=== PATIENT | female | born 1980 | race Caucasian/White ===

== ENCOUNTER → 2020-06-12 14:53 | Outpatient (BNVA) | payer OTHER, SELFPAY | PROVIDERS: PCP Internal Medicine; Visit Provider Surgery | DX: K64.4 Residual hemorrhoidal skin tags (principal); K64.8 Other hemorrhoids | CPT/HCPCS: 46600 ==

== ENCOUNTER 2020-06-22 10:25 | Outpatient (REF) | payer OTHER, SELFPAY | END 2020-06-22 10:26 | disposition home or self-care (01) | LOC: HO.LAB 10:25 | PROVIDERS: Visit Provider Internal Medicine | DX: Z20.822 Contact with and (suspected) exposure to COVID-19 (principal) | CPT/HCPCS: 36415; C9803; U0003; U0005 ==

== ENCOUNTER 2020-12-27 17:03 | Outpatient (REF) | payer OTHER, SELFPAY | END 2020-12-27 17:04 | disposition home or self-care (01) | LOC: HO.LNP 17:03 | PROVIDERS: Visit Provider Physician Assistant Medical | DX: Z20.822 Contact with and (suspected) exposure to COVID-19 (principal) | CPT/HCPCS: U0003; U0005 ==

== ENCOUNTER 2021-04-26 11:37 | Outpatient (REF) | payer OTHER, SELFPAY ==
[2021-04-26 12:13] LABS: Binax Internal Control QC Valid; Binax Now Covid-19 Ag Positive (Negative)
[2021-04-26 14:13] LABS: Appearance Urine HAZY; Color Urine YELLOW; Glucose Urine UA NEG (NEG); Leukocyte Esterase Urine NEG (NEG); Nitrite Urine NEG (NEG); Specific Gravity - Urine <= 1.005 (1.005-1.025); Urine Blood NEG (NEG); Urine Ketones NEG (NEG); Urine Protein NEG (NEG-TRACE)
== END 2021-04-26 11:38 | disposition home or self-care (01) ==
LOC: HO.HMGCLDS 11:37
PROVIDERS: Visit Provider Physician Assistant Medical
DX: Z20.822 Contact with and (suspected) exposure to COVID-19 (principal); R33.9 Retention of urine, unspecified
CPT/HCPCS: 81003

== ENCOUNTER 2021-05-28 08:23 | Outpatient (REF) | payer OTHER, SELFPAY ==
[2021-05-28 11:13] LABS: MANUAL DIFF FLAG NO
[2021-05-28 11:19] LABS: Basophils Percent Auto 0.6 % (0-2); Eosinophils Absolute Auto 0.2 X10*3/uL (0.0-0.4); Eosinophils Percent Auto 3.1 % (0-4); Hematocrit 35.8 % (37.0-47.0); Hemoglobin 11.8 g/dl (12.0-16.0); Imm Gran Abs Auto 0.01 X10*3/uL (0.00-0.03); Imm Gran Pct Auto 0.2 % (0.0-0.4); Lymphocytes Absolute Auto 1.4 X10*3/uL (1.2-4.9); Lymphocytes Percent Auto 26.2 % (20-40); Mean Corpuscular Hemoglobin 31.1 pg (27.0-33.0); Mean Corpuscular Volume 94.5 fL (80.0-98.0); Mean Platelet Volume 9.4 fL (9.4-12.3); Monocytes Absolute Auto 0.3 X10*3/uL (0.1-1.2); Monocytes Percent Auto 5.8 % (2-11); Neutrophils Absolute Auto 3.3 x10*3/uL (2.0-8.3); Neutrophils Percent Auto 64.1 % (45-73); Platelet Count 236 X10*3/uL (160-400); Red Blood Count 3.79 X10*6/uL (4.20-5.50); White Blood Count 5.2 X10*3/uL (4.8-10.8)
[2021-05-28 11:21] LABS: Appearance Urine HAZY; Color Urine YELLOW; Glucose Urine UA NEG (NEG); Leukocyte Esterase Urine NEG (NEG); Nitrite Urine NEG (NEG); Specific Gravity - Urine 1.015 (1.005-1.025); Urine Blood NEG (NEG); Urine Ketones NEG (NEG); Urine Protein NEG (NEG-TRACE)
[2021-05-28 11:48] LABS: Alanine Aminotransferase 20 U/L (0-31); Alkaline Phosphatase 54 U/L (39-117); Anion Gap 12 (12-20); Aspartate Amino Transferase 21 U/L (5-31); Bilirubin Total 0.7 mg/dL (0.0-1.0); Blood Urea Nitrogen 14 mg/dL (9-16); Calcium 8.7 mg/dL (8.4-10.2); Carbon Dioxide 22 mmol/L (22-29); Chloride 105 mmol/L (96-108); Cholesterol 172 mg/dL; Estimated Glomerular Filt Rate > 60; Glucose Fasting 85 mg/dL (60-99); HDL Cholesterol 60 mg/dL; LDL Cholesterol Calculated 99 mg/dl; Potassium 4.2 mmol/L (3.3-5.1); Sodium 135 mmol/L (135-145); Total Protein 6.7 g/dL (6.5-8.0); Triglycerides 68 mg/dL
[2021-05-28 12:11] LABS: Squamous Epithelial Cell Urine 3+ /LPF
[2021-05-29 08:03] LABS: HBS Num1 1.47 mIU/mL (0-7.99); Hepatitis B Core Antibody Nonreactive (Nonreactive); ~HepC Num1 0.11 S/CO (0.00-0.79); ~Hepatitis B Surface Antibody NONREACTIVE (Nonreactive); ~Hepatitis C Antibody Nonreactive (Nonreactive)
[2021-05-29 08:12] LABS: HBsAGNum1 0.15 S/CO (0.00-0.99); Hepatitis B Surface Antigen Negative (Negative)
[2021-05-30 09:10] LABS: Hepatitis A Antibody IgM 0.17 Index (0-0.79); ~Hepatitis A Antibody IgM Nonreactive (Nonreactive)
== END 2021-05-28 08:24 | disposition home or self-care (01) ==
LOC: HO.HMGCLDS 08:23
PROVIDERS: Visit Provider Internal Medicine
DX: Z00.00 Encounter for general adult medical examination without abnormal findings (principal); J45.909 Unspecified asthma, uncomplicated; Z98.890 Other specified postprocedural states
CPT/HCPCS: 36415; 80053; 80061; 81001; 84443; 85025; 86704; 86706; 86709; 86803; 87340

== ENCOUNTER → 2021-07-02 16:00 | Outpatient (BNVA) | payer OTHER, SELFPAY | PROVIDERS: PCP Internal Medicine; Referring Provider Internal Medicine; Visit Provider Surgery | DX: K64.4 Residual hemorrhoidal skin tags (principal); K64.8 Other hemorrhoids; Z79.899 Other long term (current) drug therapy | CPT/HCPCS: 99212 ==

== ENCOUNTER 2021-07-12 08:04 | Outpatient (REF) | payer OTHER, SELFPAY ==
--- NOTE | ~2021-07-12 | US_ITS ---
EXAMINATION: US ABDOMEN COMPLETE CLINICAL INFORMATION: Right upper quadrant pain. COMPARISON: CT abdomen and pelvis 12/13/2016. TECHNIQUE: Real-time imaging of the abdominal viscera. Technically limited study secondary to bowel gas, full stomach and rib shadow. FINDINGS: PANCREAS: The head and the body of the pancreas are homogeneous echotexture. The tail is obscured by overlying gas. ABDOMINAL AORTA: The proximal, mid, and distal segments are normal in caliber. INFERIOR VENA CAVA: Visualized portions are normal. LIVER: The liver is normal in size. The liver contour is normal. Parenchymal echogenicity is normal. There is an avascular mass measuring 0.4 x 0.6 x 0.4 cm in the right hepatic lobe, likely a small hemangioma. Nothing was visualized on the previous CT abdomen exam 12/13/2016. There is no intrahepatic biliary duct dilatation seen. GALLBLADDER: Normal. The gallbladder is physiologically distended without evidence of stones, sludge, polyps, wall thickening or pericholecystic fluid. COMMON BILE DUCT: Normal in caliber measuring 0.2 cm in diameter. RIGHT KIDNEY: Normal. No hydronephrosis. No renal calculi or focal parenchymal lesions. The kidney measures 11.2 cm in maximum dimension. LEFT KIDNEY: Normal. No hydronephrosis. No renal calculi or focal parenchymal lesions. The kidney measures 10.2 cm in maximum dimension. SPLEEN: Normal. The spleen measures 9.1 cm in maximum dimension. FREE FLUID: None. US/US abdomen complete IMPRESSION: Echogenic avascular mass right hepatic lobe, likely a small hemangioma. It is new since previous CT abdomen and pelvis exam 2016. Tail of the pancreas are not well visualized. The rest of the abdominal ultrasound is unremarkable.
--- NOTE | ~2021-07-12 | MM_ITS ---
EXAMINATION: MM SCREENING DIGITAL BREAST TOMOSYNTHESIS, BILATERAL CLINICAL INFORMATION: Screening. Asymptomatic. Status post bilateral breast reduction surgery. The lifetime risk of breast cancer based on the Tyrer-Cuzick Model is 12.4%. COMPARISON: Mammography: 08/26/2020 and studies dating back to 10/17/2016. TECHNIQUE: Digital breast tomosynthesis was performed in both the craniocaudal and mediolateral oblique views along with computer-aided detection (CAD). Synthesized 2D images were generated from the tomosynthesis. FINDINGS: There are scattered areas of fibroglandular density (ACR BI-RADS breast composition Category b). There is a stable parenchymal pattern of the right breast without evidence of new abnormal dominant mass or suspicious grouping of microcalcifications. There are some stable postsurgical changes present. Postsurgical change is seen about the left breast. Adjacent to the anterior aspect of some dystrophic calcifications and in the same plane of imaging, there is a new 2 x 2 mm circumscribed density with a lucent center and some rim calcification consistent with a new calcifying oil cyst. MM/MM tomosynthesis screening BI IMPRESSION: There are no new significant changes from prior study. ASSESSMENT: BI-RADS 2: Benign RECOMMENDATION: Routine annual mammography screening. This patient's information was entered into a reminder system with a target due date for their next mammogram.
== END 2021-07-12 08:05 | disposition home or self-care (01) ==
LOC: HO.US 08:04
PROVIDERS: PCP Internal Medicine; Visit Provider Internal Medicine
DX: Z00.00 Encounter for general adult medical examination without abnormal findings (principal); Z12.31 Encounter for screening mammogram for malignant neoplasm of breast; R10.11 Right upper quadrant pain; J45.909 Unspecified asthma, uncomplicated; Z98.890 Other specified postprocedural states
CPT/HCPCS: 76700; 77063; 77067

== ENCOUNTER 2022-02-07 09:25 | Outpatient (REF) | payer OTHER, SELFPAY ==
--- NOTE | ~2022-02-07 | CT_ITS ---
EXAMINATION: CT ABDOMEN AND PELVIS WITH CONTRAST CLINICAL INFORMATION: Unspecified abdominal pain COMPARISON: 12/13/2016 TECHNIQUE: Multidetector volumetric images were obtained from the superior aspect of the liver through the pubic symphysis following administration 85 mL of Omnipaque 350 intravenous contrast. Sagittal and coronal reformatted images were obtained on the technologist's workstation. Oral contrast: Yes This CT examination was performed using dose optimization techniques as appropriate, variously including the following: *Automated exposure control *Adjustment of mA and/or kV according to patient size (this includes techniques or standardized protocols for targeted exams where dose is matched to indication/reason for exam; i.e. extremities or head) *Use of iterative reconstruction technique DLP: 533 mGy-cm FINDINGS: LUNG BASES: The visualized lung bases are unremarkable. LIVER, GALLBLADDER, AND BILIARY TREE: The liver is normal in size, shape, and attenuation. No biliary ductal dilatation. There are a few subcentimeter hypoattenuating lesions which are too small to characterize.. The gallbladder is unremarkable with no evidence of radiopaque gallstones, gallbladder wall thickening, or obvious pericholecystic inflammatory changes. PANCREAS: Unremarkable. SPLEEN: Unremarkable. ADRENAL GLANDS: Unremarkable. KIDNEYS AND URETERS: The kidneys are normal in size, shape, and attenuation. No hydronephrosis, hydroureter, or calculi seen. No perinephric stranding. BLADDER: Unremarkable. GASTROINTESTINAL TRACT: The stomach is unremarkable. Normal caliber small bowel. No obstruction. No colonic wall thickening or inflammatory change. No free air or free fluid. ABDOMINAL WALL: No significant hernia is appreciated. LYMPH NODES: Normal. VASCULAR: Unremarkable. PELVIC VISCERA: Uterus not seen. No adnexal mass. OSSEOUS STRUCTURES: Unremarkable. CT/CT abdomen pelvis w IV con IMPRESSION: No acute findings of the abdomen or pelvis. No inflammatory changes. Fleischner guidelines were followed.
[2022-02-07] MEDS: iohexoL 350 MG/ML 100 ML INFUS..BTL 85 ML IV (12:01)
== END 2022-02-07 09:26 | disposition home or self-care (01) ==
LOC: HO.CT 09:25
PROVIDERS: PCP Internal Medicine; Visit Provider Internal Medicine
DX: R10.9 Unspecified abdominal pain (principal)
CPT/HCPCS: 74177; Q9967

== ENCOUNTER 2022-03-16 14:08 | Outpatient (REF) | payer OTHER, SELFPAY ==
[2022-03-16 15:13] LABS: Influenza A PCR NEGATIVE (Negative); Influenza B PCR NEGATIVE (Negative); Resp Syncy Virus RNA Qual PCR NEGATIVE (Negative); SARS COV2 PCR INHOUSE NEGATIVE (Negative)
== END 2022-03-16 14:09 | disposition home or self-care (01) ==
LOC: HO.LNP 14:08
PROVIDERS: Visit Provider Nurse Practitioner Family
DX: R68.89 Other general symptoms and signs (principal); Z20.822 Contact with and (suspected) exposure to COVID-19
CPT/HCPCS: 0241U; C9803

== ENCOUNTER 2022-07-27 07:31 | Outpatient (REF) | payer OTHER, SELFPAY ==
--- NOTE | ~2022-07-27 | MM_ITS ---
EXAMINATION: MM SCREENING DIGITAL BREAST TOMOSYNTHESIS, BILATERAL CLINICAL INFORMATION: Screening. Asymptomatic. Prior bilateral reduction mammoplasty. The lifetime risk of breast cancer based on the Tyrer-Cuzick Model is 8%. COMPARISON: Mammography: 07/12/2021; outside mammography 08/26/2020, 12/19/2018 ([facility]) TECHNIQUE: Digital breast tomosynthesis is performed in both the craniocaudal and mediolateral oblique views along with computer-aided detection (CAD). Synthesized 2D images are generated from the tomosynthesis. FINDINGS: There are scattered areas of fibroglandular density (ACR BI-RADS breast composition Category b). There is minor bilateral scarring and benign coarse and rim calcifications central anterior left breast similar to prior studies and consistent with the reduction mammoplasty. There are no significant masses, abnormal calcifications, or other abnormalities. No developing density. No interval architectural abnormality. The axilla are unremarkable. MM/MM tomosynthesis screening BI IMPRESSION: No mammographic evidence of malignancy. ASSESSMENT: BI-RADS 2: Benign RECOMMENDATION: Routine annual mammography screening. This patient's information was entered into a reminder system with a target due date for their next mammogram.
== END 2022-07-27 07:32 | disposition home or self-care (01) ==
LOC: HO.MAMMO 07:31
PROVIDERS: PCP Internal Medicine; Visit Provider Internal Medicine
DX: Z12.31 Encounter for screening mammogram for malignant neoplasm of breast (principal)
CPT/HCPCS: 77063; 77067

== ENCOUNTER 2023-01-15 12:59 | Outpatient (REF) | payer OTHER, SELFPAY ==
--- NOTE | ~2023-01-15 | US_ITS ---
EXAMINATION: US PELVIS CLINICAL INFORMATION: Pelvic and perineal pain. COMPARISON: Pelvic ultrasound dated January 28, 2006. CT scan dated February 07, 2022. TECHNIQUE: Ultrasound of the pelvis is performed using both transabdominal and transvaginal transducers along with Doppler. Transvaginal imaging is performed due to inadequate visualization transabdominally. FINDINGS: Uterus: The uterus is not visualized. Adnexa: The left ovary could not be visualized by the technologist. There is normal color flow to the right adnexa. There is no evidence of ovarian torsion. No pelvic ascites or fluid collection is appreciated. Right ovary measures 2.7 x 1.6 x 2.1 cm. Estimated volume measures 5 cc. US/US pelvic and transvaginal IMPRESSION: Uterus not visualized, suggesting prior surgical removal. Left ovary could not be visualized by the technologist. Otherwise unremarkable study.
== END 2023-01-15 13:00 | disposition home or self-care (01) ==
LOC: HO.HMGCX 12:59
PROVIDERS: PCP Internal Medicine; Visit Provider Obstetrics & Gynecology
DX: R10.2 Pelvic and perineal pain (principal)
CPT/HCPCS: 76830; 76856

== ENCOUNTER 2023-01-21 11:30 | Outpatient (AMB) | payer OTHER, SELFPAY ==
--- NOTE | 2023-01-21 11:32 | A.OFFPC_ITS ---
Vital Signs 01/21/23 11:33 Height 5 ft Weight 169 lb BMI 33.0 BP 132/88 Blood Pressure Location Lt brachial Position Sitting Pulse 79 Pulse Source Pulse Oximeter Pulse Oximetry (%) 100 Oxygen Delivery Method Room Air Intake Visit Reasons: Migraine headaches and leg pain Intake Note: Pt is here today for a sick visit. Pt c/o cluster headaches. Pt states that its on the R side of her head and she is feeling numbness. Pt would like to get a referral to Neurologist. Allergies oxycodone [From PERCOCET] Allergy (Unknown, Verified 01/21/23 11:35) ITCHING Medication List - Last Reconciled 01/21/23 by Ginna Mclain MD fluticasone propion-salmeterol 230-21 mcg/actuation (Advair HFA) 2 puffs inhalation BID fluticasone propionate 50 mcg/actuation (Flonase Allergy Relief) 2 sprays intranasal DAILY Tobacco use date assessed: 01/21/23 Dental Screening Dental Screen Date: 01/21/23 Did you have a dental visit in the last 12 months?: Yes Did you have a dental problem in the last 6 months where you did not have access to dental care?: No Was dental information given to patient?: Patient has dentist HPI Migraine headaches and leg pain HPI Details Pt presents c/o chronic migraine BURNS with R facial numbness, nausea, light sensitivity getting more frequent up to 2 x a week. Patient has been taking Tylenol or Advil with some relief. Pt would like to see neurologist at [facility]. Pt used to see neurosurgeon at [facility] for benign brain tumor and had serial MRIs. Patient was told that she did not need a repeat MRI for follow-up. 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 How often do you have a drink containing alcohol?: Never 3. How often do you have six or more drinks on one occasion?: Never Total Score: 0 COLE-7 AMB Questionnaire COLE-7 Date COLE - 7 assessed: 05/24/21 Feeling nervous, anxious, or on edge: 2 = More than half the days Not being able to stop or control worryin = Several days Worrying too much about different things: 2 = More than half the days Trouble relaxin = More than half the days Being so restless that it is hard to sit still: 1 = Several days Becoming easily annoyed or irritable: 1 = Several days Feeling afraid as if something awful might happen: 1 = Several days Total COLE-7 score (0-4 normal; 5-9 mild; 10-14 moderate; 15-21 severe): 10 Source: Developed by Drs. Carlos Enrique Eng, Debora Cabezas, Alejandro Chilel and colleagues, with an educational abram from [employer]. Review of Systems Const All systems reviewed & are unremarkable except as noted in HPI and below Reports no additional complaints Eyes Reports no additional complaints ENT Reports no additional complaints Card Reports no additional complaints Resp Reports no additional complaints GI Reports no additional complaints Reports no additional complaints Musc Reports no additional complaints Neuro Reports no additional complaints Physical exam (Primary Care) Vital Signs: Last Vital Signs Pulse 79 01/21/23 11:33 BP 132/88 01/21/23 11:33 Pulse Ox 100 01/21/23 11:33 Oxygen Delivery Method Room Air 01/21/23 11:33 BMI result Body Mass Index 33.0 Tobacco/Smoking Status: Tobacco use Status Tobacco use date assessed 01/21/23 01/21/23 11:37 Patient Tobacco Use Status Never used Tobacco 01/21/23 11:37 e-Cigarette/Vaping Use Never Used 01/21/23 11:37 Thrive Assessment: Date of Thrive Assessment Date Thrive assessed 05/24/21 01/21/23 11:37 Const General: no acute distress HENMT Head: Yes normal to inspection Face and sinus: Yes normal facial exam Mouth: Normal oral and palatal mucosa present Throat: Yes posterior oropharynx normal Neck Neck: Yes no lymphadenopathy and Yes supple Resp Effort & Inspection: normal respiratory effort Auscultation: clear to auscultation bilaterally Cardio Rhythm: regular rhythm Heart sounds: S1 normal heart sound present and S2 normal heart sound present Neuro General: CN's II-XI intact bilaterally Gait exam (Neuro): Normal gait present Motor exam (neuro): 5/5 motor strength present throughout Romberg Test: Negative Assessment and Plan Assessment & Plan (1) Chronic headaches: Code(s): R51.9 - Headache, unspecified; G89.29 - Other chronic pain Plan: Patient will try Imitrex and is referred to [facility] Neurology (2) Annual physical exam: Code(s): Z00.00 - Encounter for general adult medical examination without abnormal findings Plan: She will return for fasting blood work (3) Asthma: Comment: pulmonology at [facility] Code(s): J45.909 - Unspecified asthma, uncomplicated Plan: Continue Advair Orders: Orders Complete Blood Count Auto Diff Today Z00.00 - Encounter for general adult medical examination without abnormal findings Lipid Panel Today Z00.00 - Encounter for general adult medical examination without abnormal findings Comprehensive Sugar Tree. Panel Fast Today Z00.00 - Encounter for general adult medical examination without abnormal findings TSH reflex Free T4 Today Z00.00 - Encounter for general adult medical examination without abnormal findings Referrals Neurology Referral G89.29 - Other chronic pain, R51.9 - Headache, unspecified Medications: New sumatriptan succinate (Imitrex) take 1 tab at onset of headache; if no relief, may repeat 1 tab after at least 2 hrs; max = 2 tabs/24 hrs PO 10 tabs 0RF Coding Level of Care Code Est Pt Level 3 (98877) Diagnoses Chronic headaches R51.9; G89.29 Annual physical exam Z00.00 Asthma J45.909
[2023-01-21 11:33] VITALS: BP 132/88; PULSE 79; O2SAT 100; BMI 33.0
== END 2023-01-21 12:37 | disposition home or self-care (01) ==
PROVIDERS: PCP Internal Medicine; Visit Provider Internal Medicine
DX: R51.9 Headache, unspecified (principal); G89.29 Other chronic pain; Z00.00 Encounter for general adult medical examination without abnormal findings; J45.909 Unspecified asthma, uncomplicated
CPT/HCPCS: 99213

== ENCOUNTER 2023-01-25 08:33 | Outpatient (REF) | payer OTHER, SELFPAY ==
[2023-01-25 11:03] LABS: MANUAL DIFF FLAG NO
[2023-01-25 11:12] LABS: Basophils Percent Auto 0.7 % (0-2); Eosinophils Absolute Auto 0.2 X10*3/uL (0.0-0.4); Eosinophils Percent Auto 3.3 % (0-4); Hematocrit 35.4 % (37.0-47.0); Hemoglobin 11.7 g/dl (12.0-16.0); Imm Gran Abs Auto 0.01 X10*3/uL (0.00-0.03); Imm Gran Pct Auto 0.2 % (0.0-0.4); Lymphocytes Absolute Auto 1.3 X10*3/uL (1.2-4.9); Lymphocytes Percent Auto 28.8 % (20-40); Mean Corpuscular HGB Conc 33.1 g/dl (31.0-35.0); Mean Corpuscular Hemoglobin 30.5 pg (27.0-33.0); Mean Corpuscular Volume 92.4 fL (80.0-98.0); Mean Platelet Volume 9.4 fL (9.4-12.3); Monocytes Absolute Auto 0.3 X10*3/uL (0.1-1.2); Monocytes Percent Auto 6.3 % (2-11); Neutrophils Absolute Auto 2.8 x10*3/uL (2.0-8.3); Neutrophils Percent Auto 60.7 % (45-73); Platelet Count 220 X10*3/uL (160-400); Red Blood Count 3.83 X10*6/uL (4.20-5.50); Red Cell Distribution Width 13.2 % (11.0-16.0); White Blood Count 4.6 X10*3/uL (4.8-10.8)
[2023-01-25 11:29] LABS: Alanine Aminotransferase 17 U/L (0-31); Alkaline Phosphatase 52 U/L (39-117); Anion Gap 13 (12-20); Aspartate Amino Transferase 17 U/L (5-31); Bilirubin Total 0.3 mg/dL (0.0-1.0); Blood Urea Nitrogen 9 mg/dL (9-16); C Reactive Protein 0.17 mg/dL (< or = 0.50); Calcium 9.3 mg/dL (8.4-10.2); Carbon Dioxide 22 mmol/L (22-29); Chloride 108 mmol/L (96-108); Cholesterol 164 mg/dL (<200); Estimated Glomerular Filt Rate > 60; Glucose Fasting 83 mg/dL (60-99); Glucose Random 83 mg/dL (60-115); HDL Cholesterol 60 mg/dL (>40); LDL Cholesterol Calculated 95 mg/dL (<100); Potassium 4.1 mmol/L (3.3-5.1); Sodium 139 mmol/L (135-145); Total Protein 6.6 g/dL (6.5-8.0); Triglycerides 49 mg/dL (<150)
[2023-01-25 11:49] LABS: TSH reflex Free T4 1.07 uIU/mL (0.32-4.0)
[2023-01-25 12:00] LABS: Appearance Urine Clear; Color Urine Yellow; Glucose Urine UA Negative (Negative); Leukocyte Esterase Urine Negative (Negative); Nitrite Urine Negative (Negative); PH 7.5 (5.0-9.0); Specific Gravity - Urine 1.015 (1.005-1.025); Urine Blood Negative (Negative); Urine Ketones Negative (Negative); Urine Protein Negative (Neg-Trace)
[2023-01-25 12:03] LABS: Bacteria Urine None Seen (None Seen); Hyaline Casts Urine 0-2 /LPF (0-2); RBC Urine 0-2 /HPF (0-2); Squamous Epithelial Cell Urine 0-2 /HPF (0-2); WBC Urine 0-5 /HPF (0-5)
== END 2023-01-25 08:34 | disposition home or self-care (01) ==
LOC: HO.HMGCLDS 08:33
PROVIDERS: PCP Internal Medicine; Visit Provider Internal Medicine
DX: Z00.00 Encounter for general adult medical examination without abnormal findings (principal); R10.9 Unspecified abdominal pain
CPT/HCPCS: 36415; 80053; 80061; 81001; 84443; 85025; 86140

== ENCOUNTER 2023-02-26 08:38 | Outpatient (AMB) | payer OTHER, SELFPAY ==
--- NOTE | 2023-02-26 08:55 | MHC.OFFVIS ---
Intake Vital Signs 02/26/23 08:57 Height 5 ft Weight 170 lb BMI 33.2 BP 120/78 Intake Visit Reasons: Annual/U/S Follow up/DO NOT RS Manager Engagement Required: No Information Interpreted: non-clinical & clinical Data Integration Developer: Data Integration Developer Present ([place]) Allergies oxycodone [From PERCOCET] Allergy (Unknown, Verified 02/26/23 08:59) ITCHING Is last menstrual period known: No Patient : No HPI HPI Comments History of Present Illness Details Presenting for annual exam. And follow-up for pelvic pain. Last visit urine dip was negative pelvic ultrasound done recently. Since then, her pelvic pain has resolved completely. Last Pap/HPV was many years ago no history of abnormal Pap smear, the patient is status post hysterectomy for fibroids in 2017 Last Mammogram was BI-RADS 2 in 07/28 Ultrasound done on in 01/27 showed the following: Uterus: The uterus is not visualized. Adnexa: The left ovary could not be visualized by the technologist. There is normal color flow to the right adnexa. There is no evidence of ovarian torsion. No pelvic ascites or fluid collection is appreciated. Right ovary measures 2.7 x 1.6 x 2.1 cm. Estimated volume measures 5 cc. 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: House Patient Tobacco Use Status: Never used Tobacco e-Cigarette/Vaping Use: Never Used Patient : No Current occupational status: employed 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 Sexual orientation: Straight/Heterosexual Gender identity: Female Cognitive needs: No Hearing needs: No Vision needs: No Female Reproductive History Menstrual Age of Menarche: 8 control method: permanent sterilization Total pregnancies: 2 Full term: 2 Number of Living Children: 2 Date of Mammogram: 07/27/22 Review of Systems Const All systems reviewed & are unremarkable except as noted in HPI and below Card Reports as per HPI and Reports no additional complaints Resp Reports as per HPI and Reports no additional complaints GI Reports as per HPI and Reports no additional complaints Reports as per HPI Physical Exam Vital Signs: Last Vital Signs BP 120/78 02/26/23 08:57 BMI result Body Mass Index 33.2 Const General: cooperative, healthy appearing and comfortable General: Yes bladder normal to palpation External Female Exam: No lesion Speculum Exam - Vagina: normal appearance of the vagina, normal vaginal discharge and not erythematous Speculum Exam - Cervix: Cervix absent Bimanual exam- vagina & uterus: bladder normal to palpation and uterus absent Bimanual Exam- Adnexa, other: Other (No masses detected) Assessment & Plan Assessment & Plan (1) Well woman exam: Code(s): Z01.419 - Encounter for gynecological examination (general) (routine) without abnormal findings Plan: Cotesting not indicated since the patient is status post hysterectomy with no history of abnormal Pap smear in the past. Instructions given the patient to schedule her next screening Mammogram in 07/29. Counseled the patient about the recommended dietary allowance of 1000 mg of Calcium & 600 IU of vitamin D. The patient was instructed to perform monthly self-breast exams and to schedule an annual exam in a year; All questions answered and the patient verbalized understanding. Instructed the patient to schedule annual exam in a year (2) Pelvic pain: Code(s): R10.2 - Pelvic and perineal pain Plan: Discussed with patient the results of the urine dip being negative and pelvic ultrasound, unremarkable. 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 Instructions given the patient case pelvic pain recurs to schedule an appointment with her PCP for further evaluation and if the workup is negative and her pain is persistent to call back for further management. All questions answered, the patient verbalized understanding and agreed with the plan. Coding Level of Care Code Est Pt Prev Care 40-64y(77750) Diagnoses Well woman exam Z01.419 Pelvic pain R10.2
[2023-02-26 08:57] VITALS: BP 120/78; BMI 33.2
== END 2023-02-26 09:23 | disposition home or self-care (01) ==
LOC: HO.HWS 08:39
PROVIDERS: PCP Internal Medicine; Visit Provider Obstetrics & Gynecology
DX: Z01.419 Encounter for gynecological examination (general) (routine) without abnormal findings (principal); R10.2 Pelvic and perineal pain
CPT/HCPCS: 99396

== ENCOUNTER → 2023-02-26 08:38 | Outpatient (BNVA) | payer OTHER, SELFPAY | PROVIDERS: PCP Internal Medicine; Visit Provider Obstetrics & Gynecology ==

== ENCOUNTER 2023-03-12 09:24 | Outpatient (AMB) | payer OTHER, SELFPAY ==
[2023-03-12 10:38] VITALS: BP 118/74; PULSE 75; TEMP 36.8; O2SAT 97; BMI 33.0
--- NOTE | 2023-03-12 10:38 | AM.OFFWIN_ITS ---
Intake Vital Signs 03/12/23 10:38 Height 5 ft Weight 76.714 kg BMI 33.0 BP 118/74 Blood Pressure Location Rt brachial Position Sitting Pulse 75 Pulse Source Pulse Oximeter Temp 98.2 F Temp Source Oral Pulse Oximetry (%) 97 Oxygen Delivery Method Room Air Intake Visit Reasons: EP short breath congestion headache [id number] Intake Note: pt is here for c.o upper resp infection possibly, congestion, headache, patient went to urgent care and completed course of amoxicillin 125 mg but no relief Patient Tobacco Use Status: Never used Tobacco Allergies oxycodone [From PERCOCET] Allergy (Unknown, Verified 03/12/23 10:40) ITCHING Do you need a note to return to daycare/school/sports/work: Yes HPI HPI Comments History of Present Illness Details 1058 43-year-old female presents for evaluati on of upper respiratory infection complaining of fatigue, malaise, myalgias, cough, patient went to urgent care about a week ago, was prescribed amoxicillin, she took a full course of antibiotics however despite this not feeling better. She reports symptoms have not worsened however they have remained same. She denies associated fevers, chills, chest pain, shortness of breath, nausea, vomiting, abdominal pain, changes in bowel habits, sinus pressure, headache, vision changes, dizziness and weakness. Physical exam benign. Concerns for upper respiratory infection versus bronchitis versus pneumonia. Unlikely acute coronary syndrome, pulmonary embolism , acute respiratory distress, dissection, pneumothorax. Other differentials include viral illness such as flu / COVID/RSV. plan at this time will discharge patient home on doxycycline and prednisone with an inhaler. Educated patient on diagnosis and treatment plan, answered all question, patient verbalizes understanding. At this time patient will be discharged home, advised to return with new or worsening symptoms. Educated on worrisome signs and symptoms and when to return. At this time I feel comfortable discharge home. 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 Housing: House Patient Tobacco Use Status: Never used Tobacco e-Cigarette/Vaping Use: Never Used Current occupational status: employed 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 Sexual 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: Straight/Heterosexual Gender identity: Female Cognitive needs: No Hearing needs: No Vision needs: No Female Reproductive History Menstrual Age of Menarche: 8 Review of Systems Const Details: Constitutional : No Weight loss, No Fever, No Chills, + Fatigue, + Malaise ENT/Mouth : No sore throat, No Rhinorrhea, + congestion Eyes: No Eye Pain, No Swelling, No Redness Cardiovascular : No Chest Pain, No SOB, No Dyspnea on Exertion, No Orthopnea, No Edema, No Palpitations Respiratory : + Cough, No Sputum, No Wheezing Gastrointestinal : No Nausea, No Vomiting, No Diarrhea, No Constipation, No abdominal Pain, No Hematochezia, No Melena Genitourinary : No Dysuria, No Urinary Frequency, No Hematuria, Musculoskeletal : No joint pain, No Myalgias, No Joint Swelling Skin : No Skin Lesions, No rash Neuro : No Weakness, No Numbness, No Dizziness, No Headache All other systems reviewed and are negative All systems reviewed & are unremarkable except as noted in HPI and below Physical Exam Vital Signs: Last Vital Signs Temp 98.2 F 03/12/23 10:38 Pulse 75 03/12/23 10:38 BP 118/74 03/12/23 10:38 Pulse Ox 97 03/12/23 10:38 Oxygen Delivery Method Room Air 03/12/23 10:38 BMI result Body Mass Index 33.0 Vital signs stable Appearance: Alert.? Oriented X3.? No acute distress.? Head: Normocephalic, atraumatic, no step-offs or deformities Eyes: Pupils equal, round and reactive to light.? ENT: Pharynx normal.? Neck: Normal inspection.? Neck supple.? CVS: Normal heart rate and rhythm.? Pulses normal.? Respiratory: No respiratory distress.? Breath sounds normal.? Abdomen: Soft and nontender.? Skin: Skin warm and dry.? Normal skin color.? Normal skin turgor.? Extremities: No lower extremity edema.? No calf ttp. 5/5 strength to bilateral upper and lower extremities Back: No midline tenderness, no C-spine tenderness, full range of motion, no CVA tenderness bilaterally Neuro: Oriented X 3.? No motor deficit.? No sensory deficit. CN 2-12 intact Assessment & Plan Assessment & Plan (1) Bronchitis: Code(s): J40 - Bronchitis, not specified as acute or chronic Plan Take your medications as prescribed. If you were prescribed antibiotics today, it is important that you take your medication to their entirety, do not skip any doses, do not finish them early. Follow-up with your primary care provider this week. Return to the emergency department with new or worsening symptoms. Such as fevers, chills, chest pain, shortness of breath, nausea, vomiting, dizziness, headache, vision changes, lethargy In case of emergency call 911 Medications: New prednisone 20 mg PO DAILY 5 days 5 tabs 0RF doxycycline hyclate 100 mg PO BID 7 days 14 caps 0RF albuterol sulfate 90 mcg/actuation 2 puffs inhalation Q6H PRN 6.7 grams 0RF shortness of breath or wheezing Coding Level of Care Code Est Pt Level 3 (23204) Diagnoses Bronchitis J40
== END 2023-03-12 11:07 | disposition home or self-care (01) ==
PROVIDERS: PCP Internal Medicine; Visit Provider Physician Assistant
DX: J40 Bronchitis, not specified as acute or chronic (principal)
CPT/HCPCS: 99213

== ENCOUNTER 2023-05-08 13:28 | Outpatient (AMB) | payer OTHER, SELFPAY ==
[2023-05-08 13:32] VITALS: BP 119/74; PULSE 94; BMI 33.1
--- NOTE | 2023-05-08 13:32 | A.OFFVIS_ITS ---
Intake Vital Signs 05/08/23 13:32 Height 5 ft Weight 169 lb 12.095 oz BMI 33.1 BP 119/74 Blood Pressure Location Rt brachial Position Sitting Pulse 94 Intake Visit Reasons: hemorrhage of anus Intake Note: Patient presents to in office visit today as a new patient for rectal bleeding. CC: Patient c/o rectal bleeding on and off for about 2 years, hemorrhoids, RUQ abd pain for about a year, and constipation. She also c/o a lot of discomfort, she said the blood is a lot and it goes through her pants. She states that she already knows when she will start bleeding because she gets a lot pain and abd bloating. Per patient when she eats red meat, sauces, fried foods, and some spices she gets heartburn and feels sick. Allergies oxycodone [From PERCOCET] Allergy (Unknown, Verified 05/08/23 13:38) ITCHING HPI hemorrhage of anus HPI Details 43-year-old female with past medical his tory of internal and external hemorrhoids, chronic headaches asthma is here for initial consultation. Patient reports that she had a colonoscopy in 2019. Has seen general surgery for her hemorrhoids and has not schedule hemorrhoidectomy. Patient canceled her hemorrhoide[place] [address] Nunn. Reports that she had hemorrhoidectomy in 2019 at [facility]. Patient's colonoscopy was normal except for hemorrhoids seen. Patient reports feeling constipated, occasionally patient will have a postprandial loose stools, however most often she is constipated. Currently is not taking anything for constipation. Patient reports that she is drinking plenty fluids. Depending on what she eats her bleeding is worse. Specially when she eats take something fried or spicy. Patient reports that she usually no so when she is going to have bleeding that is when she has cramping to go to the bathroom, feeling bloated, crampy. Patient reports to be bleeding a lot. Patient reports dyspepsia without dysphagia or odynophagia. 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 Housing: House Patient Tobacco Use Status: Never used Tobacco e-Cigarette/Vaping Use: Never Used Current occupational status: employed 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 Sexual orientation: Straight/Heterosexual Gender identity: Female Cognitive needs: No Hearing needs: No Vision needs: No Female Reproductive History Menstrual Age of Menarche: 8 Review of Systems Const Denies weight gain and Denies weight loss ENT Reports no additional complaints, Denies dysphagia and Denies odynophagia Card Reports no additional complaints Resp Reports no additional complaints GI Reports abdominal pain (Cramping), Denies belching, Denies melena, Reports bloating, Reports hematochezia, Denies change in bowel habits, Reports constipation, Denies dysphagia, Denies excessive flatus, Reports dyspepsia, Reports heartburn, Denies diarrhea, Denies loose stools, Reports nausea, Denies odynophagia and Denies vomiting Reports no additional complaints Musc Reports no additional complaints Neuro Reports no additional complaints Psych Reports no additional complaints Endo Reports no additional complaints Physical Exam Vital Signs: Last Vital Signs Pulse 94 05/08/23 13:32 BP 119/74 05/08/23 13:32 BMI result Body Mass Index 33.1 Const General: healthy appearing, no acute distress and well developed Nutritional Appearance: well nourished Orientation/consciousness: patient oriented x3 Resp Effort & Inspection: normal respiratory effort, able to speak in complete sentences, no tracheal deviation and symmetric chest movement Auscultation: clear to auscultation bilaterally Cardio Rate: regular rate GI Inspection: Yes normal to inspection and No distended Palpation (GI): Soft to palpation, not firm, nontender and No hepatosplenomegaly present Auscultation: normal bowel sounds General: Yes no CVA tenderness Back/Spine/Pelvis Back: no CVA tenderness Skin General skin exam: elasticity normal, turgor normal and dry skin Neuro General: patient oriented x3 Psych Appearance: grossly normal Mental Status: mental status grossly normal Assessment & Plan Assessment & Plan (1) RUQ abdominal pain: Code(s): R10.11 - Right upper quadrant pain (2) Rectal bleeding: Code(s): K62.5 - Hemorrhage of anus and rectum (3) Internal and external bleeding hemorrhoids: Code(s): K64.4 - Residual hemorrhoidal skin tags; K64.8 - Other hemorrhoids (4) GERD (gastroesophageal reflux disease): Code(s): K21.9 - Gastro-esophageal reflux disease without esophagitis Qualifiers: Esophagitis presence: esophagitis presence not specified Qualified Code(s): K21.9 - Gastro-esophageal reflux disease without esophagitis Plan Will send patient for abdominal ultrasound. Patient reports right upper quadrant pain, negative for tenderness on exam. Will check for H pylori and treat empirically if positive. Patient can start taking pantoprazole every morning half an hour before breakfast. Avoid dietary triggers and late night snacking. Patient will also call General surgery to see if she can go had an have the surgery. Patient is of age to go for colonoscopy, however would like to wait until after her surgery. Will rule out IBD, check lipase, vitamin B12, folate, vitamin D, thyroid study. Patient will return in 6 weeks, sooner on as needed basis. Patient is agreeable to this plan and verbalizes understanding of instructions. She was given the opportunity to ask questions and all questions answered. Thank you for allowing me to participate in her care Orders: Orders Vitamin D 25-OH (D2 and D3) 05/08/23 E55.9 - Vitamin D deficiency, unspecified H pylori Ag Stool 05/08/23 K21.9 - Gastro-esophageal reflux disease without esophagitis Calprotectin, Fecal 05/08/23 R15.9 - Full incontinence of feces Lipase 05/08/23 R10.9 - Unspecified abdominal pain TSH reflex Free T4 05/08/23 K59.00 - Constipation, unspecified Vitamin B12 and Folate 05/08/23 R19.7 - Diarrhea, unspecified US abdomen complete 05/08/23 R10.11 - Right upper quadrant pain, R10.9 - Unspecified abdominal pain Medications: New methylcellulose (laxative) (Citrucel) 500 mg PO DAILY 30 tabs 2RF K59.00 - Constipation, unspecified sennosides (Natural Senna Laxative) 17.2 mg (2 x 8.6 mg) PO BEDTIME 60 tabs 3RF constipation K59.00 - Constipation, unspecified hydrocortisone 2.5% (Proctosol HC) 1 appl NM BID-QID PRN 30 grams 2RF hemorrhoids K64.9 - Unspecified hemorrhoids pantoprazole take one tablet half an hour before breakfast 40 mg PO DAILY 30 tabs 2RF K21.9 - Gastro-esophageal reflux disease without esophagitis hydrocortisone acetate (Anucort-HC) 25 mg NM BID 24 ea 2RF Coding Level of Care Code New Pt Level 4 (36510) Diagnoses RUQ abdominal pain R10.11 Rectal bleeding K62.5 Internal and external bleeding hemorrhoids K64.4; K64.8 Gastroesophageal reflux disease, unspecified whether esophagitis present K21.9 Esophagitis presence: esophagitis presence not specified Time Spent (min) 45 Comment 30 minutes spent with patient and additional 15 minutes spent reviewing her records
== END 2023-05-08 14:16 | disposition home or self-care (01) ==
PROVIDERS: PCP Internal Medicine; Visit Provider Nurse Practitioner Family
DX: R10.11 Right upper quadrant pain (principal); K62.5 Hemorrhage of anus and rectum; K64.4 Residual hemorrhoidal skin tags; K64.8 Other hemorrhoids; K21.9 Gastro-esophageal reflux disease without esophagitis
CPT/HCPCS: 99204

== ENCOUNTER → 2023-05-08 13:28 | Outpatient (BNVA) | payer OTHER, SELFPAY | PROVIDERS: PCP Internal Medicine; Visit Provider Nurse Practitioner Family ==

== ENCOUNTER 2023-06-04 08:22 | Outpatient (REF) | payer OTHER, SELFPAY ==
--- NOTE | ~2023-06-04 | US_ITS ---
EXAMINATION: US ABDOMEN COMPLETE CLINICAL INFORMATION: Abdominal pain. Right upper quadrant pain. COMPARISON: CT abdomen and pelvis 02/07/2022 TECHNIQUE: Real-time imaging of the abdominal viscera. FINDINGS: PANCREAS: Normal. ABDOMINAL AORTA: The proximal, mid, and distal segments are normal in caliber. INFERIOR VENA CAVA: Visualized portions are normal. LIVER: The liver is normal in size. The liver contour is normal. Parenchymal echogenicity is increased. A small hyperechoic lesion seen in the right hepatic lobe measuring 0.40 x 0.45 x 0.43 cm. Suspicious for a small hemangioma. There is no intrahepatic biliary duct dilatation seen. GALLBLADDER: Gallbladder wall thickness is 0.14 cm. The gallbladder is physiologically distended without evidence of stones, sludge, polyps, wall thickening or pericholecystic fluid. COMMON BILE DUCT: Normal in caliber measuring 0.43 cm in diameter. RIGHT KIDNEY: Normal. No hydronephrosis. No renal calculi or focal parenchymal lesions. The kidney measures 10.7 cm in maximum dimension. LEFT KIDNEY: Normal. No hydronephrosis. No renal calculi or focal parenchymal lesions. The kidney measures 9.7 cm in maximum dimension. SPLEEN: Normal. The spleen measures 8.6 cm in maximum dimension. FREE FLUID: None. US/US abdomen complete IMPRESSION: Hypoechoic area right hepatic lobe likely small hemangioma. This was not visualized on CT abdomen exam 02/07/2022. However there were subcentimeter hypodensities seen in liver on the previous study which are not visualized on ultrasound. Rest of the abdominal ultrasound is unremarkable.
== END 2023-06-04 08:23 | disposition home or self-care (01) ==
LOC: HO.US 08:22
PROVIDERS: PCP Internal Medicine; Visit Provider Nurse Practitioner Family
DX: R10.11 Right upper quadrant pain (principal)
CPT/HCPCS: 76700

== ENCOUNTER 2023-06-19 07:06 | Outpatient (REF) | payer OTHER, SELFPAY ==
[2023-06-19 08:19] LABS: Lipase 24 U/L (8-78)
[2023-06-19 08:36] LABS: TSH reflex Free T4 1.77 uIU/mL (0.32-4.0)
[2023-06-19 12:14] LABS: Folate 9.1 ng/mL (> or = 4.0); Vitamin B12 332 pg/mL (200-900)
[2023-06-23 23:09] LABS: Vitamin D 25-OH, D2 <4 ng/mL; Vitamin D 25-OH, D3 24 ng/mL; Vitamin D 25-OH, Total 24 ng/mL (30-100)
== END 2023-06-19 07:07 | disposition home or self-care (01) ==
LOC: HO.LAB 07:06
PROVIDERS: PCP Internal Medicine; Visit Provider Nurse Practitioner Family
DX: R10.9 Unspecified abdominal pain (principal); K59.00 Constipation, unspecified; R19.7 Diarrhea, unspecified; E55.9 Vitamin D deficiency, unspecified
CPT/HCPCS: 36415; 82306; 82607; 82746; 83690; 84443

== ENCOUNTER 2023-06-20 09:45 | Outpatient (REF) | payer OTHER, SELFPAY ==
[2023-06-26 17:48] LABS: Calprotectin, Fecal 49 mcg/g
== END 2023-06-20 09:46 | disposition home or self-care (01) ==
LOC: HO.LNP 09:45
PROVIDERS: Visit Provider Nurse Practitioner Family
DX: K21.9 Gastro-esophageal reflux disease without esophagitis (principal); R15.9 Full incontinence of feces
CPT/HCPCS: 83993; 87338

== ENCOUNTER 2023-06-20 13:27 | Outpatient (AMB) | payer OTHER, SELFPAY ==
--- NOTE | 2023-06-20 13:29 | MHC.OFFVIS ---
Intake Vital Signs 06/20/23 13:33 Height 5 ft Weight 163 lb BMI 31.8 BP 121/67 Blood Pressure Location Lt brachial Position Sitting Pulse 86 Intake Visit Reasons: 6 week follow up discuss EGD/Colonoscopy Intake Note: Patient follow up for GERD and US results. Patient denies any GI issues also patient did her blood work and stool 06/19/2023 and results are pending. [employer] Department Supervisor Required: No Accompanied by: Self / Same As Patient Allergies oxycodone [From PERCOCET] Allergy (Unknown, Verified 06/20/23 13:29) ITCHING HPI 6 week follow up discuss EGD/Colonoscopy HPI Details LAST VISIT: RUQ abdominal pain Rectal bleeding Internal and external bleeding hemorrhoids GERD (gastroesophageal reflux disease) Plan Will send patient for abdominal ultrasound. Patient reports right upper quadrant pain, negative for tenderness on exam. Will check for H pylori and treat empirically if positive. Patient can start taking pantoprazole every morning half an hour before breakfast. Avoid dietary triggers and late night snacking. Patient will also call General surgery to see if she can go had an have the surgery. Patient is of age to go for colonoscopy, however would like to wait until after her surgery. Will rule out IBD, check lipase, vitamin B12, folate, vitamin D, thyroid study. Patient will return in 6 weeks, sooner on as needed basis. Patient is agreeable to this plan and verbalizes understanding of instructions. She was given the opportunity to ask questions and all questions answered. ? Thank you for allowing me to participate in her care Orders Orders Vitamin D 25-OH (D2 and D3) 05/08/23 E55.9 H pylori Ag Stool 05/08/23 K21.9 Calprotectin, Fecal 05/08/23 R15.9 Lipase 05/08/23 R10.9 TSH reflex Free T4 05/08/23 K59.00 Vitamin B12 and Folate 05/08/23 R19.7 US abdomen complete 05/08/23 R10.11, R10.9 Medications New methylcellulose (laxative) (Citrucel) 500 mg PO DAILY 30 tabs 2RF K59.00 sennosides (Natural Senna Laxative) 17.2 mg (2 x 8.6 mg) PO BEDTIME 60 tabs 3RF constipation K59.00 hydrocortisone 2.5% (Proctosol HC) 1 appl CO BID-QID PRN 30 grams 2RF hemorrhoids K64.9 pantoprazole take one tablet half an hour before breakfast 40 mg PO DAILY 30 tabs 2RF K21.9 hydrocortisone acetate (Anucort-HC) 25 mg CO BID 24 ea 2RF LAST VISIT Patient is here today for follow-up and to discuss going for colonoscopy. Patient reports occasional postprandial epigastric discomfort and acid reflux. Patient states that she is taking pantoprazole on as needed basis. Ultrasound was negative for any acute processes. Patient states that she changed her diet and is avoiding food that is fried, spicy. Avoiding bread as well pizza or pasta. Patient was unable to use rectal suppository as she felt like her symptoms got worse and she had burning afterwards. Patient is using MiraLax in the morning and senna at night time, however she occasionally will still be constipated. Sometimes when she has a bowel movement she feels like it is too hard and she will have blood in her stool. Patient had colonoscopy over 4 years ago or so. Patient also hemorrhoidal banding done in the past. However she has seen Dr. Nunn couple years ago and declined surgery. Patient feels like her hemorrhoids are back [facility] Medical History (Updated 05/12/23 @ 19:49 by Shruthi Caceres, [facility]) Flu-like symptoms Chronic headaches RUQ discomfort Annual physical exam Asthma GERD (gastroesophageal reflux disease) Internal and external bleeding hemorrhoids Surgical History Hx of hysterectomy Hx of colonoscopy History of bunionectomy History of esophagogastroduodenoscopy (EGD) Family History Father Dementia Mother Diabetes Maternal Aunt Stomach cancer Ovarian cancer Social History Household Members Other:: 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, 2 children, 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 26, 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 Patient Tobacco Use Status: Never used Tobacco e-Cigarette/Vaping Use: Never Used Current occupational status: employed 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 Sexual 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: Straight/Heterosexual Gender identity: Female Cognitive needs: No Hearing needs: No Vision needs: No Female Reproductive History Menstrual Age of Menarche: 8 Review of Systems Const Denies weight gain and Denies weight loss ENT Reports no additional complaints, Denies dysphagia and Denies odynophagia Card Reports no additional complaints Resp Reports no additional complaints GI Denies abdominal pain, Denies belching, Denies melena, Denies bloating, Reports constipation, Denies dysphagia, Denies excessive flatus, Denies dyspepsia, Reports heartburn, Denies diarrhea, Denies loose stools, Denies nausea, Denies odynophagia and Denies vomiting Reports no additional complaints Musc Reports no additional complaints and Reports arthralgias Neuro Reports no additional complaints Psych Reports no additional complaints Endo Reports no additional complaints Physical Exam Vital Signs: Last Vital Signs Pulse 86 06/20/23 13:33 BP 121/67 06/20/23 13:33 BMI result Body Mass Index 31.8 Const General: healthy appearing, no acute distress and well developed Nutritional Appearance: obese Orientation/consciousness: patient oriented x3 Resp Effort & Inspection: normal respiratory effort, able to speak in complete sentences, no tracheal deviation and symmetric chest movement Auscultation: clear to auscultation bilaterally Cardio Rate: regular rate GI Inspection: Yes normal to inspection, No distended and Yes obesity Palpation (GI): Soft to palpation, not firm, nontender and No hepatosplenomegaly present Auscultation: normal bowel sounds General: Yes no CVA tenderness Back/Spine/Pelvis Back: no CVA tenderness Skin General skin exam: elasticity normal, turgor normal and dry skin Neuro General: patient oriented x3 Psych Appearance: grossly normal Mental Status: mental status grossly normal Assessment & Plan Assessment & Plan (1) Rectal bleeding: Code(s): K62.5 - Hemorrhage of anus and rectum (2) Internal and external bleeding hemorrhoids: Code(s): K64.4 - Residual hemorrhoidal skin tags; K64.8 - Other hemorrhoids (3) GERD (gastroesophageal reflux disease): Code(s): K21.9 - Gastro-esophageal reflux disease without esophagitis Qualifiers: Esophagitis presence: esophagitis presence not specified Qualified Code(s): K21.9 - Gastro-esophageal reflux disease without esophagitis (4) RUQ abdominal pain: Code(s): R10.11 - Right upper quadrant pain Plan Patient will continue avoiding dietary triggers and late night snacking. Staying upright for minimum 3 hours after meals discussed with patient. Patient will go for upper endoscopy to rule out gastritis, duodenitis, esophagitis, Lugo's, H pylori, gastric or peptic ulcers. Patient denies any issues with anesthesia in the past. No history of sleep apnea. Not on any anticoagulation medication. Patient can continue taking current bowel regimen, I will add Colace to take with senna. Patient will call the office if she continues to be constipated. What to expect before during and after the procedure discussed with patient. The importance of good bowel prep and clear liquid diet day before procedure discussed with patient. I will see her after the procedure, sooner on as needed basis. Patient is agreeable to this plan and verbalizes understanding of instructions. She was given the opportunity to ask questions and all questions answered. Thank you for allowing me to participate in her care Medications: New bisacodyl (Dulcolax (bisacodyl)) take 4 tabs at noon the day before your colonoscopy 20 mg (4 x 5 mg) PO ONCE 1 day 4 tabs 0RF Z12.11 - Encounter for screening for malignant neoplasm of colon docusate sodium 100 mg PO BEDTIME 90 caps 3RF K59.00 - Constipation, unspecified Miralax (polyethylene glycol 3350) As directed by gastroenterology department at [facility] 238 grams PO ONCE 238 grams 0RF NS Z12.11 - Encounter for screening for malignant neoplasm of colon Discontinued methylcellulose (laxative) (Citrucel) Discontinued Reason: Doctor's Order 500 mg PO DAILY 30 tabs 2RF K59.00 - Constipation, unspecified Coding Level of Care Code Est Pt Level 4 (86954) Diagnoses Rectal bleeding K62.5 Internal and external bleeding hemorrhoids K64.4; K64.8 Gastroesophageal reflux disease, unspecified whether esophagitis present K21.9 Esophagitis presence: esophagitis presence not specified RUQ abdominal pain R10.11 Time Spent (min) 35 Comment 20 minutes spent with patient and additional 15 minutes spent reviewing her records
[2023-06-20 13:33] VITALS: BP 121/67; PULSE 86; BMI 31.8
== END 2023-06-20 14:26 | disposition home or self-care (01) ==
PROVIDERS: PCP Internal Medicine; Visit Provider Nurse Practitioner Family
DX: K62.5 Hemorrhage of anus and rectum (principal); K64.4 Residual hemorrhoidal skin tags; K64.8 Other hemorrhoids; K21.9 Gastro-esophageal reflux disease without esophagitis; R10.11 Right upper quadrant pain
CPT/HCPCS: 99214

== ENCOUNTER 2023-08-23 08:54 | Outpatient (REF) | payer OTHER, SELFPAY ==
[2023-08-23 11:25] LABS: MANUAL DIFF FLAG NO
[2023-08-23 11:28] LABS: Basophils Percent Auto 0.7 % (0-2); Eosinophils Absolute Auto 0.2 X10*3/uL (0.0-0.4); Eosinophils Percent Auto 4.6 % (0-4); Imm Gran Abs Auto 0.01 X10*3/uL (0.00-0.03); Imm Gran Pct Auto 0.2 % (0.0-0.4); Lymphocytes Absolute Auto 1.2 X10*3/uL (1.2-4.9); Lymphocytes Percent Auto 28.1 % (20-40); Mean Corpuscular HGB Conc 33.3 g/dl (31.0-35.0); Mean Corpuscular Hemoglobin 30.9 pg (27.0-33.0); Mean Corpuscular Volume 92.8 fL (80.0-98.0); Mean Platelet Volume 9.3 fL (9.4-12.3); Monocytes Absolute Auto 0.4 X10*3/uL (0.1-1.2); Monocytes Percent Auto 8.4 % (2-11); Neutrophils Absolute Auto 2.5 x10*3/uL (2.0-8.3); Platelet Count 211 X10*3/uL (160-400); Red Blood Count 3.88 X10*6/uL (4.20-5.50); Red Cell Distribution Width 13.1 % (11.0-16.0); White Blood Count 4.4 X10*3/uL (4.8-10.8)
[2023-08-23 11:40] LABS: Appearance Urine Clear; Color Urine Yellow; Glucose Urine UA Negative (Negative); Leukocyte Esterase Urine Negative (Negative); Nitrite Urine Negative (Negative); Specific Gravity - Urine 1.015 (1.005-1.025); Urine Blood Negative (Negative); Urine Ketones Negative (Negative); Urine Protein Negative (Neg-Trace)
[2023-08-23 11:46] LABS: Bacteria Urine None Seen (None Seen); Hyaline Casts Urine 0-2 /LPF (0-2); RBC Urine 0-2 /HPF (0-2); WBC Urine 0-5 /HPF (0-5)
[2023-08-23 12:11] LABS: Alanine Aminotransferase 16 U/L (0-31); Albumin Level 4.2 g/dL (3.5-5.0); Alkaline Phosphatase 63 U/L (39-117); Anion Gap 15 (12-20); Aspartate Amino Transferase 17 U/L (5-31); Bilirubin Total 0.4 mg/dL (0.0-1.0); Blood Urea Nitrogen 13 mg/dL (9-16); Calcium 9.6 mg/dL (8.4-10.2); Carbon Dioxide 21 mmol/L (22-29); Chloride 108 mmol/L (96-108); Cholesterol 170 mg/dL (<200); Estimated Glomerular Filt Rate > 60; Glucose Fasting 86 mg/dL (60-99); HDL Cholesterol 64 mg/dL (>40); LDL Cholesterol Calculated 95 mg/dL (<100); Potassium 4.1 mmol/L (3.3-5.1); Sodium 140 mmol/L (135-145); Total Protein 6.9 g/dL (6.5-8.0); Triglycerides 57 mg/dL (<150)
[2023-08-23 12:18] LABS: TSH reflex Free T4 1.23 uIU/mL (0.32-4.0)
== END 2023-08-23 08:55 | disposition home or self-care (01) ==
LOC: HO.HMGCLDS 08:54
PROVIDERS: PCP Internal Medicine; Visit Provider Internal Medicine
DX: Z00.00 Encounter for general adult medical examination without abnormal findings (principal)
CPT/HCPCS: 36415; 80053; 80061; 81001; 84443; 85025

== ENCOUNTER 2023-08-25 11:53 | Outpatient (AMB) | payer OTHER, SELFPAY ==
[2023-08-25 12:01] VITALS: BP 112/78; PULSE 79; O2SAT 100; BMI 31.8
--- NOTE | 2023-08-25 12:01 | A.OFFPC_ITS ---
Vital Signs 08/25/23 12:01 Height 5 ft Weight 163 lb BMI 31.8 BP 112/78 Blood Pressure Location Rt brachial Position Sitting Pulse 79 Pulse Source Pulse Oximeter Pulse Oximetry (%) 100 Oxygen Delivery Method Room Air Intake Visit Reasons: Annual PE Intake Note: Pt is here today for PE. Allergies oxycodone [From PERCOCET] Allergy (Unknown, Verified 08/25/23 12:05) ITCHING Medication List - Last Reconciled 08/25/23 by Ginna Mclain MD albuterol sulfate 90 mcg/actuation 2 puffs inhalation Q6H PRN bisacodyl (Dulcolax (bisacodyl)) 20 mg (4 x 5 mg) PO ONCE 1 day docusate sodium 100 mg PO BEDTIME fluticasone propion-salmeterol 230-21 mcg/actuation (Advair HFA) 2 puffs inhalation BID hydrocortisone acetate (Anucort-HC) 25 mg OR BID Miralax (polyethylene glycol 3350) 238 grams PO ONCE NS pantoprazole 40 mg PO DAILY sennosides (Natural Senna Laxative) 17.2 mg (2 x 8.6 mg) PO BEDTIME Tobacco use date assessed: 08/25/23 Dental Screening Dental Screen Date: 08/25/23 Did you have a dental visit in the last 12 months?: Yes Did you have a dental problem in the last 6 months where you did not have access to dental care?: No Was dental information given to patient?: Patient has dentist HPI Annual PE HPI Details Pt presents for PE. Pt has been under a lot of stress related to taking care of her father and mother, stress at work. Patient complains of recurrent rectal bleeding was evaluated by GI and has a colonoscopy scheduled. She reports intermittent constipation and has been taking MiraLax on and off. 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 1. Little interest or pleasure in doing things: several days 2. Feeling down, depressed, or hopeless: several days 3. Trouble falling or staying asleep, or sleeping too much: more than half the days 4. Feeling tired or having little energy: more than half the days 5. Poor appetite or overeating: more than half the days 6. Feeling bad about yourself - or that you are a failure or have let yourself or your family down: more than half the days 7. Trouble concentrating on things, such as reading the newspaper or watching television: more than half the days 8. Moving or speaking so slowly that other people could have noticed. Or the opposite - being so fidgety or restless that you have been moving around a lot more than usual: more than half the days 9. Thoughts that you would be better off or of hurting yourself in some way: not at all Total score: 14 Depression Screening Interpretation: Positive (Patient is established with counselor and declined medications) Depression Screening Follow-up: Existing condition Depression Screening Done: Yes Source: Developed by Drs. Carlos Enrique Eng, Debora Cabezas, Alejandro Chilel and colleagues, with an educational abram from [employer] Thrive Questionnaire Date Thrive assessed: 08/25/23 I am a: Patient What is your living situation today?: I have a steady place to live Within the past 12 months, did the food you bought not last and you didn't have the money to get more?: Never true Within the past 12 months, did you worry whether your food would run out before you got money to buy more?: Never true Do you have trouble paying for medicines?: No Do you have trouble getting transportation to medical appointments?: No Do you have trouble paying your heating and electricity bill?: No Do you have trouble taking care of your child, family member or friend?: No Do you have trouble with day-to-day activities such as bathing, preparing meals, shopping, managing finances, etc.?: No Are you currently unemployed and looking for a job?: No Are you interested in more education?: No Please select the resources that you would like help with: None THRIVE Score: 0 AUDIT C Alcohol Use Questionnaire (AUDIT-C) 1. How often do you have a drink containing alcohol?: 2-4 times a month 2. How many drinks containing alcohol do you have on a typical day when you are drinking?: 1 or 2 3. How often do you have six or more drinks on one occasion?: Never Total Score: 2 COLE-7 AMB Questionnaire COLE-7 Date COLE - 7 assessed: 08/25/23 Feeling nervous, anxious, or on edge: 3 = Nearly every day Not being able to stop or control worryin = Nearly every day Worrying too much about different things: 3 = Nearly every day Trouble relaxin = Nearly every day Being so restless that it is hard to sit still: 3 = Nearly every day Becoming easily annoyed or irritable: 3 = Nearly every day Feeling afraid as if something awful might happen: 3 = Nearly every day Total COLE-7 score (0-4 normal; 5-9 mild; 10-14 moderate; 15-21 severe): 21 Source: Developed by Drs. Carlos Enrique Eng, Debora aCbezas, Alejandro Chilel and colleagues, with an educational abram from [employer] Review of Systems Const All systems reviewed & are unremarkable except as noted in HPI and below Reports no additional complaints Eyes Reports no additional complaints ENT Reports no additional complaints Card Reports no additional complaints Resp Reports no additional complaints GI Reports no additional complaints Reports no additional complaints Musc Reports no additional complaints Physical exam (Primary Care) Vital Signs: Last Vital Signs Pulse 79 08/25/23 12:01 BP 112/78 08/25/23 12:01 Pulse Ox 100 08/25/23 12:01 Oxygen Delivery Method Room Air 08/25/23 12:01 BMI result Body Mass Index 31.8 Tobacco/Smoking Status: Tobacco use Status Tobacco use date assessed 08/25/23 08/25/23 12:12 Patient Tobacco Use Status Never used Tobacco 08/25/23 12:12 e-Cigarette/Vaping Use Never Used 08/25/23 12:01 PHQ-9: PHQ-9 Score PHQ-9: Total score 14 08/25/23 13:04 Depression Screening Interpretation: Positive (Patient is established with counselor and declined medications) Depression Screening Follow-up: Existing condition Thrive Assessment: Date of Thrive Assessment Date Thrive assessed 08/25/23 08/25/23 13:04 Const General: no acute distress HENMT Head: Yes normal to inspection Ears: hearing grossly normal bilaterally Face and sinus: Yes normal facial exam Mouth: Normal oral and palatal mucosa present Teeth and gingiva: dentition normal Throat: Yes posterior oropharynx normal Eyes General: appearance normal, both eyes and all related structures Neck Neck: Yes no lymphadenopathy and Yes supple Resp Effort & Inspection: normal respiratory effort Auscultation: clear to auscultation bilaterally Cardio Rhythm: regular rhythm Heart sounds: S1 normal heart sound present and S2 normal heart sound present GI Inspection: Yes normal to inspection Palpation (GI): Soft to palpation Percussion: Yes normal to percussion Auscultation: normal bowel sounds Assessment and Plan Assessment & Plan (1) Annual physical exam: Code(s): Z00.00 - Encounter for general adult medical examination without abnormal findings Plan: Well-balanced diet regular physical activity discussed with the patient she will have a mammogram in September and colonoscopy in December. (2) Asthma: Comment: pulmonology at [facility] Code(s): J45.909 - Unspecified asthma, uncomplicated Plan: Patient uses Advair once or twice a week (3) Rectal bleeding: Comment: Will have colonoscopy in December, Code(s): K62.5 - Hemorrhage of anus and rectum (4) Anxiety and depression: Code(s): F41.9 - Anxiety disorder, unspecified; F32.A - Depression, unspecified Plan: Stress management and mindfulness discussed with the patient she will continue counseling and call if she is interested in medication Coding Level of Care Code Est Pt Prev Care 40-64y(29128) Diagnoses Annual physical exam Z00.00 Asthma J45.909 Rectal bleeding K62.5 Anxiety and depression F41.9; F32.A
== END 2023-08-25 12:50 | disposition home or self-care (01) ==
PROVIDERS: PCP Internal Medicine; Visit Provider Internal Medicine
DX: Z00.00 Encounter for general adult medical examination without abnormal findings (principal); J45.909 Unspecified asthma, uncomplicated; K62.5 Hemorrhage of anus and rectum; F41.9 Anxiety disorder, unspecified; F32.A Depression, unspecified
CPT/HCPCS: 99396

== ENCOUNTER 2023-09-27 08:08 | Outpatient (REF) | payer OTHER, SELFPAY ==
--- NOTE | ~2023-09-27 | MM_ITS ---
EXAMINATION: MM SCREENING DIGITAL BREAST TOMOSYNTHESIS, BILATERAL CLINICAL INFORMATION: Screening. Asymptomatic. Patient is status post bilateral breast reduction. COMPARISON: Mammography: This study is compared with prior exams dating back to 2019. TECHNIQUE: Digital breast tomosynthesis is performed in both the craniocaudal and mediolateral oblique views along with computer-aided detection (CAD). Synthesized 2D images are generated from the tomosynthesis. FINDINGS: The breasts are almost entirely fatty (ACR BI-RADS breast composition Category a). There are no significant masses, abnormal calcifications, or other abnormalities. There are post reduction changes in each breast. There is a coarse benign calcification in the left breast in the retroareolar region related to prior breast reduction. MM/MM tomosynthesis screening BI IMPRESSION: No mammographic evidence of malignancy. ASSESSMENT: BI-RADS BI-RADS 2 - Benign Findings RECOMMENDATION: Routine annual mammography screening. 1 year F/U This examination should not preclude the clinical evaluation of a suspicious palpable abnormality. This patient's information was entered into a reminder system with a target due date for their next mammogram.
== END 2023-09-27 08:09 | disposition home or self-care (01) ==
LOC: HO.MAMMO 08:08
PROVIDERS: PCP Internal Medicine; Visit Provider Internal Medicine
DX: Z12.31 Encounter for screening mammogram for malignant neoplasm of breast (principal)
CPT/HCPCS: 77063; 77067

== ENCOUNTER → 2023-09-27 08:15 | Outpatient (BNV) | payer OTHER, SELFPAY | PROVIDERS: PCP Internal Medicine; Visit Provider Radiology Diagnostic Radiology | DX: Z12.31 Encounter for screening mammogram for malignant neoplasm of breast (principal) | CPT/HCPCS: 77063; 77067 ==

== ENCOUNTER 2023-10-13 22:08 | Emergency (ER) | payer BC, SELFPAY ==
[2023-10-13 22:14] VITALS: BP 130/65; PULSE 99; RESP 20; TEMP 37.2; O2SAT 99; BMI 26.6
[2023-10-13 22:37] LABS: MANUAL DIFF FLAG NO
[2023-10-13 22:45] LABS: Basophils Percent Auto 0.3 % (0-2); Eosinophils Absolute Auto 0.2 X10*3/uL (0.0-0.4); Eosinophils Percent Auto 2.1 % (0-4); Hematocrit 35.2 % (37.0-47.0); Hemoglobin 12.2 g/dl (12.0-16.0); Imm Gran Abs Auto 0.02 X10*3/uL (0.00-0.03); Imm Gran Pct Auto 0.2 % (0.0-0.4); Lymphocytes Absolute Auto 2.4 X10*3/uL (1.2-4.9); Mean Corpuscular HGB Conc 34.7 g/dl (31.0-35.0); Mean Corpuscular Hemoglobin 31.7 pg (27.0-33.0); Mean Corpuscular Volume 91.4 fL (80.0-98.0); Mean Platelet Volume 9.2 fL (9.4-12.3); Monocytes Absolute Auto 0.7 X10*3/uL (0.1-1.2); Monocytes Percent Auto 7.6 % (2-11); Neutrophils Absolute Auto 5.3 x10*3/uL (2.0-8.3); Neutrophils Percent Auto 61.8 % (45-73); Platelet Count 201 X10*3/uL (160-400); Red Blood Count 3.85 X10*6/uL (4.20-5.50); Red Cell Distribution Width 13.2 % (11.0-16.0); White Blood Count 8.6 X10*3/uL (4.8-10.8)
[2023-10-13 22:46] LABS: Appearance Urine Turbid; Color Urine Yellow; Glucose Urine UA Negative (Negative); Leukocyte Esterase Urine Large (3+) (Negative); Nitrite Urine Negative (Negative); PH 6.5 (5.0-9.0); Specific Gravity - Urine <= 1.005 (1.005-1.025); UMIC TRIGGER UACC YES; Urine Blood Large (3+) (Negative); Urine Ketones Negative (Negative); Urine Protein 30 (1+) mg/dL (Neg-Trace)
[2023-10-13 22:52] LABS: Alanine Aminotransferase 18 U/L (0-31); Albumin Level 4.3 g/dL (3.5-5.0); Alkaline Phosphatase 82 U/L (39-117); Anion Gap 13 (12-20); Aspartate Amino Transferase 19 U/L (5-31); Bilirubin Total 0.4 mg/dL (0.0-1.0); Blood Urea Nitrogen 10 mg/dL (9-16); Calcium 9.4 mg/dL (8.4-10.2); Carbon Dioxide 22 mmol/L (22-29); Chloride 107 mmol/L (96-108); Creatinine Clr Calc Pharmacy 68.8; Estimated Glomerular Filt Rate 58; Glucose Random 110 mg/dL (60-115); Potassium 3.8 mmol/L (3.3-5.1); Sodium 138 mmol/L (135-145); Total Protein 7.4 g/dL (6.5-8.0)
[2023-10-13 23:04] LABS: Bacteria Urine Trace (None Seen); Hyaline Casts Urine 0-2 /LPF (0-2); Squamous Epithelial Cell Urine 0-2 /HPF (0-2); UACC Culture Trigger YES; WBC Urine >50 /HPF (0-5)
[2023-10-14 01:13] LABS: Lipase 24 U/L (8-78)
== END 2023-10-14 00:58 | disposition left against medical advice (07) ==
PROVIDERS: Emergency Provider Emergency Medicine; PCP Internal Medicine
DX: R10.9 Unspecified abdominal pain (principal); R30.0 Dysuria; Z53.21 Procedure and treatment not carried out due to patient leaving prior to being seen by health care provider
CPT/HCPCS: 36415; 80053; 81001; 83690; 85025; 87086; 87088; 87186; 99281; 99282

== ENCOUNTER 2023-12-18 06:11 | Day surgery (SDC) | payer BC, SELFPAY ==
[2023-12-16 13:54] VITALS: BMI 31.8
--- NOTE | 2023-12-16 14:47 | P.CONAN_ITS ---
Documented by User: Joanne Betancur NP 12/16/23 14:48 HPI - Anesthesia Eval Consult details Narrative: 43yo F for Colonoscopy PMFSH Active Problems Active Problems: All Active Problems Anxiety and depression (Acute) Rectal bleeding (Acute) Hordeolum external (Acute) Flu-like symptoms (Acute) Abdominal pain (Acute) Pelvic pain (Acute) Well woman exam (Acute) RUQ discomfort (Acute) Annual physical exam (Acute) Viral syndrome (Acute) Unable to empty bladder (Acute) Otitis media of left ear (Acute) Contact with and (suspected) exposure to other viral communicable diseases (Acute) Tendinitis (Acute) Asthma (Acute) GERD (gastroesophageal reflux disease) (Acute) Chronic headaches (Acute) Hx of colonoscopy (Acute) Asthma (Acute) Internal and external bleeding hemorrhoids (Acute) Past Medical History Medical History (Updated 12/16/23 @ 13:56 by Clari Linares RN) Chronic headaches Asthma GERD (gastroesophageal reflux disease) Internal and external bleeding hemorrhoids Family History Family History Father Dementia Mother Diabetes Maternal Aunt Stomach cancer Ovarian cancer Surgical History Surgical History Hx of hysterectomy Hx of colonoscopy History of bunionectomy History of esophagogastroduodenoscopy (EGD) Social History Social History Household Members Other:: SINGLE, 2 children, 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 26, 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 Patient Tobacco Use Status: Never used Tobacco e-Cigarette/Vaping Use: Never Used service: No Current occupational status: employed 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 Sexual orientation: Straight/Heterosexual Gender identity: Female Cognitive needs: No Hearing needs: No Vision needs: No Meds Allergies Allergy/AdvReac Type Severity Reaction Status Date / Time oxycodone [From PERCOCET] Allergy Unknown ITCHING Verified 10/13/23 22:18 Exam Height,Weight and Vital Signs: Height 5 ft Weight 73.936 kg Pertinent Lab Results Pertinent Lab Results: Laboratory Tests 10/13/23 22:30 WBC 8.6 Hgb 12.2 Hct 35.2 L Plt Count 201 Sodium 138 Potassium 3.8 Chloride 107 Carbon Dioxide 22 BUN 10 Creatinine 1.03 Assessment and Plan Assessment Anesthesia Assessment: Chart Reviewed Documented by User: Jose Maria Lay MD 12/18/23 07:41 PMFSH Active Problems Active Problems: Pham Active Problems Anxiety and depression (Acute) Rectal bleeding (Acute) Hordeolum external (Acute) Flu-like symptoms (Acute) Abdominal pain (Acute) Pelvic pain (Acute) Well woman exam (Acute) RUQ discomfort (Acute) Annual physical exam (Acute) Viral syndrome (Acute) Unable to empty bladder (Acute) Otitis media of left ear (Acute) Contact with and (suspected) exposure to other viral communicable diseases (Acute) Tendinitis (Acute) Asthma (Acute) GERD (gastroesophageal reflux disease) (Acute) Chronic headaches (Acute) Hx of colonoscopy (Acute) Asthma (Acute) Internal and external bleeding hemorrhoids (Acute) Past Medical History Medical History (Updated 12/16/23 @ 13:56 by Clari Linares RN) Chronic headaches Asthma GERD (gastroesophageal reflux disease) Internal and external bleeding hemorrhoids Patient : No Family History Family History Father Dementia Mother Diabetes Maternal Aunt Stomach cancer Ovarian cancer Family history of problems with anesthesia: No Surgical History Surgical History Hx of hysterectomy Hx of colonoscopy History of bunionectomy History of esophagogastroduodenoscopy (EGD) History of Problems with Anesthesia: No Social History Social History Household Members Other:: 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, 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, 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, 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 Patient Tobacco Use Status: Never used Tobacco e-Cigarette/Vaping Use: Never Used service: No Current occupational status: employed 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 Sexual orientation: Straight/Heterosexual Gender identity: Female Cognitive needs: No Hearing needs: No Vision needs: No Meds Allergies Allergy/AdvReac Type Severity Reaction Status Date / Time oxycodone [From PERCOCET] Allergy Unknown ITCHING Verified 10/13/23 22:18 Exam Airway Mallampati Class: II TM Dist: <=3cm Neck ROM: Full Loose/Missing/Broken Teeth: No Heart: ok Lungs: ok Assessment and Plan Assessment Anesthesia Assessment: Anesthesia Plan Discussed Final Anesthetic Review Family History of Problems with Anesthesia: No History of Problems with Anesthesia: No NPO: Yes ASA Class: II Final Preanesthetic Review: No Changes in Pt Med Stat, Meds/Allgs Chart Reviewed, Consent Obtained/Reviewed and Anes Risks/Benef Reviewed Patient Risk: Low Procedure Risk: Low Anesthetic Plan Anesthetic Plan: MAC: and Agree w/ Assess. and Plan Disposition: Standard PACU
[2023-12-18 06:53] VITALS: BP 120/78; PULSE 76; RESP 20; TEMP 37.1; O2SAT 97
[2023-12-18] MEDS: Lactated Ringers 1,000 ML 100 ML IVCONT (07:01)
--- NOTE | 2023-12-18 07:40 | MHC.SHP ---
Pre-Procedural Eval Section A - 24 Hr Update-Section A only Date of Service: 12/18/23 Section B - Complete if H&P > 30 days Chief Complaint: Encounter for screening for malignant neoplasm of Relevant Family History (Specify if Yes): No Relevant Social History: None Present Medications: see Short Stay Collaborative assessment Medical History: Significant History ( Flu-like symptoms Chronic headaches RUQ discomfort Annual physical exam Asthma GERD (gastroesophageal reflux disease) Internal and external bleeding hemorrhoids) History of Previous Operations: Relevant previous surgery/procedure and date(s) ( Hx of hysterectomy Hx of colonoscopy History of bunionectomy History of esophagogastroduodenoscopy (EGD)) Allergies: Allergies Allergy/AdvReac Type Severity Reaction Status Date / Time oxycodone [From PERCOCET] Allergy Unknown ITCHING Verified 10/13/23 22:18 Review of Systems Sugical H&P ROS: Negative: Constitution, Cardiovascular, Respiratory, Neurological, Psychiatric, Hem-Onc, Allergic/Immunologic, Gastrointestinal, Genitourinary, Musculoskeletal, Integumentary, Endocrine and Eyes/Ears/Nose/Throat Exam Surgical H&P Exam: Normal: HEENT, Normal: Heart, Normal: Lungs, Normal: Extremities, Normal: Abdomen, Normal: Skin and Normal: Neurological Plan Diagnosis/Plan: Unchanged I have reviewed the history and physical and performed a pertinent physical examination on my patient. No changes have occurred unless specified. Time Spent With Patient Time: Total time managing care of this patient today ____ minutes.
--- NOTE | 2023-12-18 07:59 | HO.OPN-COLON ---
Colonoscopy Operative Note Operative Note Date of Service: 12/18/23 Narrative: Operative Information Procedure Description: Colonoscopy Indication: rectal bleeding Anesthesia: MAC COLONOSCOPY Instrument: Olympus variable stiffness pediatric scope 190L Colonoscopy Monitoring: Vital signs and clinical assessment, continuous EKG monitoring, Pulse oximetry, Carbon Dioxide monitoring and blood pressure monitoring were done throughout the procedure. Colon withdrawal time was 8 minutes. Procedure: The patient was placed in the left lateral decubitis position and pre-procedure medications were administered. After a digital rectal examination of the ano-rectum, the video colonoscope was inserted into the rectum and advanced through the colon to the cecum/TI. The colonoscope was slowly withdrawn in a retrograde panoramic fashion and the colon mucosa was carefully examined including a retroflexed view of the rectum. Findings and interventions are described below. Procedure Difficulty: moderate, pressure applied Findings: Terminal Ileum-normal Cecum:normal right sided retroflexion- normal Ascending Colon: normal Transverse Colon -normal Descending Colon:normal Sigmoid Colon: normal Rectum: Retroflexion with large inflammed internal hemorrhoids seen, grade I Anorectum - normal Intervention: none Colon preparation: [place] Bowel Preparation Scale Right colon; 2 Transverse colon: 2 Left colon; 2 (0 = Unprepared colon segment with mucosa not seen due to solid stool that cannot be cleared. 1 = Portion of mucosa of the colon segment seen, but other areas of the colon segment not well seen due to staining, residual stool and/or opaque liquid. 2 = Minor amount of residual staining, small fragments of stool and/or opaque liquid, but mucosa of colon segment seen well. 3 = Entire mucosa of colon segment seen well with no residual staining, small fragments of stool or opaque liquid) Impression and Post Procedure Diagnosis: internal hemorrhoids Plan: High fiber diet leaflet Avoid straining at stool, epsom salts and sitz bath, anusol supps or cream-if ongoing sx then colorectal referral Repeat Colonoscopy in 10 years or earlier if clinically indicated Above findings were reviewed with the patient and relevant handouts were provided if indicated.
[2023-12-18 08:05] VITALS: BP 100/58; PULSE 79; RESP 18; TEMP 36.1; O2SAT 99
[2023-12-18 08:20] VITALS: BP 110/66; PULSE 74; RESP 16; O2SAT 99
[2023-12-18] MEDS: Acetaminophen 325 MG TABLET 650 MG PO (08:29)
[2023-12-18 08:35] VITALS: BP 128/76; PULSE 65; RESP 16; TEMP 36.2; O2SAT 100
== END 2023-12-18 09:15 | disposition home or self-care (01) ==
PROVIDERS: PCP Internal Medicine; Visit Provider Internal Medicine Gastroenterology
PROC: 0DJD8ZZ Inspection of Lower Intestinal Tract, Via Natural or Artificial Opening Endoscopic (ICD-10-PCS; CPT 45378; principal; 2023-12-18 07:30)
DX: K62.5 Hemorrhage of anus and rectum (principal); K64.0 First degree hemorrhoids; K64.4 Residual hemorrhoidal skin tags; K59.00 Constipation, unspecified; K21.9 Gastro-esophageal reflux disease without esophagitis; J45.909 Unspecified asthma, uncomplicated; R51.9 Headache, unspecified; Z79.899 Other long term (current) drug therapy; Z88.5 Allergy status to narcotic agent
CPT/HCPCS: 45378; J2704

== ENCOUNTER → 2023-12-18 06:11 | Outpatient (BNV) | payer BC, SELFPAY | PROVIDERS: PCP Internal Medicine; Visit Provider Internal Medicine Gastroenterology | DX: K62.5 Hemorrhage of anus and rectum (principal); K64.8 Other hemorrhoids | CPT/HCPCS: 45378 ==

== ENCOUNTER 2023-12-26 15:38 | Outpatient (AMB) | payer BC, SELFPAY ==
[2023-12-26 15:41] VITALS: BP 134/90; PULSE 78; O2SAT 100; BMI 31.8
--- NOTE | 2023-12-26 15:41 | A.OFFVIS_ITS ---
Vital Signs 12/26/23 15:41 Height 5 ft Weight 162 lb 11.218 oz BMI 31.8 BP 134/90 H Blood Pressure Location Rt brachial Position Sitting Pulse 78 Pulse Source Pulse Oximeter Pulse Oximetry (%) 100 Oxygen Delivery Method Room Air Intake Visit Reasons: S/P colo; Dr. Alexander Intake Note: Alla presents in office today for a scheduled s/p FUV. CC; Pt reports that they are here to discuss the findings of their procedure. Pt denies any new sx, concerns, or complications post op. Pt denies the need for any medication refills at this time. 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 Alexander: Details: LAST VISIT: Rectal bleeding Internal and external bleeding hemorrhoids GERD (gastroesophageal reflux disease) RUQ abdominal pain Plan Patient will continue avoiding dietary triggers and late night snacking. Staying upright for minimum 3 hours after meals discussed with patient. Patient will go for upper endoscopy to rule out gastritis, duodenitis, esophagitis, Lugo's, H pylori, gastric or peptic ulcers. Patient denies any issues with anesthesia in the past. No history of sleep apnea. Not on any anticoagulation medication. Patient can continue taking current bowel regimen, I will add Colace to take with senna. Patient will call the office if she continues to be constipated. What to expect before during and after the procedure discussed with patient. The importance of good bowel prep and clear liquid diet day before procedure discussed with patient. I will see her after the procedure, sooner on as needed basis. Patient is agreeable to this plan and verbalizes understanding of instructions. She was given the opportunity to ask questions and all questions answered. ? Thank you for allowing me to participate in her care Medications New bisacodyl (Dulcolax (bisacodyl)) take 4 tabs at noon the day before your colonoscopy 20 mg (4 x 5 mg) PO ONCE 1 day 4 tabs 0RF Z12.11 docusate sodium 100 mg PO BEDTIME 90 caps 3RF K59.00 Miralax (polyethylene glycol 3350) As directed by gastroenterology department at [facility] 238 grams PO ONCE 238 grams 0RF NS Z12.11 Discontinued methylcellulose (laxative) (Citrucel) Discontinued Reason: Doctor's Order 500 mg PO DAILY 30 tabs 2RF K59.00 COLONOSCOPY Findings: Terminal Ileum-normal Cecum:normal right sided retroflexion- normal Ascending Colon: normal Transverse Colon -normal Descending Colon:normal Sigmoid Colon: normal Rectum: Retroflexion with large inflammed internal hemorrhoids seen, grade I Anorectum - normal Intervention: none Colon preparation: [place] Bowel Preparation Scale Right colon; 2 Transverse colon: 2 Left colon; 2 (0 = Unprepared colon segment with mucosa not seen due to solid stool that cannot be cleared. 1 = Portion of mucosa of the colon segment seen, but other areas of the colon segment not well seen due to staining, residual stool and/or opaque liquid. 2 = Minor amount of residual staining, small fragments of stool and/or opaque liquid, but mucosa of colon segment seen well. 3 = Entire mucosa of colon segment seen well with no residual staining, small fragments of stool or opaque liquid) Impression and Post Procedure Diagnosis: internal hemorrhoids Plan: High fiber diet leaflet Avoid straining at stool, epsom salts and sitz bath, anusol supps or cream-if ongoing sx then colorectal referral Repeat Colonoscopy in 10 years or earlier if clinically indicated LAST VISIT: Patient is here today for follow-up and to discuss colonoscopy results. Patient denies any ill effects from the prep, anesthesia or procedure itself. Reports to be doing well. No polyps found, internal hemorrhoids large and inflamed seen on retroflexion. Patient continues to have trouble and occasionally have blood when having a bowel movement. Patient however denies any melena. Denies any family history of CRC. Reports that pantoprazole has been working for her and her acid reflux symptoms are suppressed. 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 Housing: House Patient Tobacco Use Status: Never used Tobacco e-Cigarette/Vaping Use: Never Used service: No Current occupational status: employed 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 Sexual orientation: Straight/Heterosexual Gender identity: Female Cognitive needs: No Hearing needs: No Vision needs: No Female Reproductive History Menstrual Age of Menarche: 8 Review of Systems Const Denies weight gain and Denies weight loss ENT Reports no additional complaints, Denies dysphagia and Denies odynophagia Card Reports no additional complaints Resp Reports no additional complaints GI Denies abdominal pain, Denies belching, Denies melena, Denies bloating, Denies change in bowel habits, Denies dysphagia, Denies excessive flatus, Denies dyspepsia, Denies heartburn, Denies diarrhea, Denies loose stools, Denies nausea, Denies odynophagia and Denies vomiting Musc Reports no additional complaints Neuro Reports no additional complaints Psych Reports no additional complaints Endo Reports no additional complaints Physical Exam Vital Signs: Last Vital Signs Pulse 78 12/26/23 15:41 BP 134/90 H 12/26/23 15:41 Pulse Ox 100 12/26/23 15:41 Oxygen Delivery Method Room Air 12/26/23 15:41 BMI result Body Mass Index 31.8 Const General: healthy appearing, no acute distress and well developed Nutritional Appearance: obese Orientation/consciousness: patient oriented x3 Resp Effort & Inspection: normal respiratory effort, able to speak in complete sentences, no tracheal deviation and symmetric chest movement Auscultation: clear to auscultation bilaterally Cardio Rate: regular rate GI Inspection: Yes normal to inspection, No distended and Yes obesity Palpation (GI): Soft to palpation, not firm, nontender and No hepatosplenomegaly present Auscultation: normal bowel sounds General: Yes no CVA tenderness Back/Spine/Pelvis Back: no CVA tenderness Skin General skin exam: elasticity normal, turgor normal and dry skin Neuro General: patient oriented x3 Psych Appearance: grossly normal Mental Status: mental status grossly normal Assessment & Plan Assessment & Plan (1) Rectal bleeding: Comment: Will have colonoscopy in December, Code(s): K62.5 - Hemorrhage of anus and rectum Category: Medical (2) Internal and external bleeding hemorrhoids: Code(s): K64.4 - Residual hemorrhoidal skin tags; K64.8 - Other hemorrhoids Category: Medical (3) GERD (gastroesophageal reflux disease): Code(s): K21.9 - Gastro-esophageal reflux disease without esophagitis Category: Medical Qualifiers: Esophagitis presence: esophagitis presence not specified Qualified Code(s): K21.9 - Gastro-esophageal reflux disease without esophagitis (4) RUQ abdominal pain: Code(s): R10.11 - Right upper quadrant pain Plan Patient will try Proctosol. Will take stool softeners. If patient will continue to have trouble and will have rectal bleeding she can be referred to General surgery. Sitz baths with Epsom salts recommended. Continue pantoprazole. Avoid dietary triggers and late night snacking. Staying upright for minimum 3 hours after meals discussed with patient. Patient will follow-up on as needed basis. Colonoscopy recommended in 10 years, sooner if clinically necessary. Patient is agreeable to this plan and verbalizes understanding of instructions. She was given the opportunity to ask questions and all questions answered. Thank you for allowing me to participate in her care Medications: New docusate sodium 100 mg PO BEDTIME 90 caps 3RF K59.00 - Constipation, unspecified hydrocortisone 2.5% (Proctosol HC) 1 appl [place] BID-QID PRN 30 grams 2RF hem orrhoids K64.9 - Unspecified hemorrhoids Discontinued sennosides Discontinued Reason: Doctor's Order 17.2 mg (2 x 8.6 mg) PO BEDTIME 60 tabs 3RF constipation K59.00 - Constipation, unspecified Coding Level of Care Code Est Pt Level 3 (85700) Diagnoses Rectal bleeding K62.5 Internal and external bleeding hemorrhoids K64.4; K64.8 Gastroesophageal reflux disease, unspecified whether esophagitis present K21.9 Esophagitis presence: esophagitis presence not specified RUQ abdominal pain R10.11 Time Spent (min) 25 Comment 30 minutes spent with patient and additional 10 minutes spent reviewing her records
== END 2023-12-26 16:12 | disposition home or self-care (01) ==
PROVIDERS: PCP Internal Medicine; Visit Provider Nurse Practitioner Family
DX: K62.5 Hemorrhage of anus and rectum (principal); K64.4 Residual hemorrhoidal skin tags; K64.8 Other hemorrhoids; K21.9 Gastro-esophageal reflux disease without esophagitis; R10.11 Right upper quadrant pain
CPT/HCPCS: 99213

== ENCOUNTER → 2023-12-26 15:38 | Outpatient (BNVA) | payer OTHER, SELFPAY | PROVIDERS: PCP Internal Medicine; Visit Provider Nurse Practitioner Family ==

== ENCOUNTER 2024-01-27 08:02 | Outpatient (REF) | payer BC, SELFPAY ==
[2024-01-27 10:05] LABS: Appearance Urine Cloudy; Color Urine Yellow; Glucose Urine UA Negative (Negative); Leukocyte Esterase Urine Large (3+) (Negative); Nitrite Urine Negative (Negative); Specific Gravity - Urine 1.015 (1.005-1.025); UMIC TRIGGER UA YES; Urine Blood Small (1+) (Negative); Urine Ketones Negative (Negative); Urine Protein Negative (Neg-Trace)
[2024-01-27 10:08] LABS: Bacteria Urine 4+ (None Seen); Hyaline Casts Urine 0-2 /LPF (0-2); Squamous Epithelial Cell Urine 0-2 /HPF (0-2); WBC Urine >50 /HPF (0-5)
== END 2024-01-27 08:03 | disposition home or self-care (01) ==
LOC: HO.HMGCLDS 08:02
PROVIDERS: PCP Internal Medicine; Visit Provider Internal Medicine
DX: R30.0 Dysuria (principal); R82.79 Other abnormal findings on microbiological examination of urine
CPT/HCPCS: 81001; 87086; 87088; 87186

== ENCOUNTER 2024-02-10 07:52 | Outpatient (REF) | payer BC, SELFPAY ==
[2024-02-10 10:20] LABS: Appearance Urine Clear; Color Urine Yellow; Glucose Urine UA Negative (Negative); Leukocyte Esterase Urine Negative (Negative); Nitrite Urine Negative (Negative); PH 6.5 (5.0-9.0); Specific Gravity - Urine <= 1.005 (1.005-1.025); Urine Blood Negative (Negative); Urine Ketones Negative (Negative); Urine Protein Negative (Neg-Trace)
[2024-02-10 10:23] LABS: Bacteria Urine None Seen (None Seen); Hyaline Casts Urine 0-2 /LPF (0-2); RBC Urine 0-2 /HPF (0-2); Squamous Epithelial Cell Urine 0-2 /HPF (0-2); WBC Urine 0-5 /HPF (0-5)
== END 2024-02-10 07:53 | disposition home or self-care (01) ==
LOC: HO.HMGCLDS 07:52
PROVIDERS: PCP Internal Medicine; Visit Provider Internal Medicine
DX: N39.0 Urinary tract infection, site not specified (principal)
CPT/HCPCS: 81001; 87086

== ENCOUNTER 2024-03-25 14:27 | Outpatient (AMB) | payer BC, SELFPAY ==
--- NOTE | 2024-03-25 14:33 | MHC.PC.OV ---
Vital Signs 03/25/24 14:34 Height 5 ft Weight 165 lb BMI 32.2 BP 118/76 Blood Pressure Location Lt brachial Position Sitting Pulse 80 Pulse Source Pulse Oximeter Pulse Oximetry (%) 100 Oxygen Delivery Method Room Air Intake Visit Reasons: Chest tightness, COVID Intake Note: Pt is here today for a sick visit. Pt c/o chest tightness and tested positive for Covid on Friday. Pt also c/o pain on her legs feeling heavy, and bilateral lower back pain. Allergies oxycodone [From PERCOCET] Allergy (Unknown, Verified 03/25/24 14:37) ITCHING Medication List - Last Reconciled 03/25/24 by Ginna Mclain MD albuterol sulfate 90 mcg/actuation 2 puffs inhalation Q6H PRN docusate sodium 100 mg PO BEDTIME fluticasone propion-salmeterol 230-21 mcg/actuation (Advair HFA) 2 puffs inhalation BID hydrocortisone 2.5% (Proctosol HC) 1 appl [place] BID-QID PRN pantoprazole 40 mg PO DAILY Tobacco use date assessed: 03/25/24 Dental Screening Dental Screen Date: 08/25/23 HPI Chest tightness, COVID HPI Details Pt c/o nasal and chest congestion, R >L mid back pain, nausea, for 4 days. Patient denies cough pleurisy. She has been taking Advair and using albuterol inhaler up to twice a day. Patient complains of chronic lower extremity pain heaviness worse at the end of the day improve after elevation of lower extremities. Patient noticed easy bruising on extremities. 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 Carlos Enrique Eng, Debora Cabezas, Alejandro Chilel and colleagues, with an educational abram from [employer] Review of Systems Const All systems reviewed & are unremarkable except as noted in HPI and below Eyes Reports no additional complaints Card Reports no additional complaints Resp Reports no additional complaints GI Reports no additional complaints Physical exam (Primary Care) Vital Signs: Last Vital Signs Pulse 80 03/25/24 14:34 BP 118/76 03/25/24 14:34 Pulse Ox 100 03/25/24 14:34 Oxygen Delivery Method Room Air 03/25/24 14:34 BMI result Body Mass Index 32.2 Tobacco/Smoking Status: Tobacco use Status Tobacco use date assessed 03/25/24 03/25/24 14:39 Patient Tobacco Use Status Never used Tobacco 03/25/24 14:33 e-Cigarette/Vaping Use Never Used 03/25/24 14:33 Thrive Assessment: Date of Thrive Assessment Date Thrive assessed 08/25/23 03/25/24 14:33 Const General: no acute distress HENMT Head: Yes normal to inspection Ears: TM's normal bilaterally Mouth: Normal oral and palatal mucosa present Throat: Yes posterior oropharynx normal Eyes General: appearance normal, both eyes and all related structures Resp Effort & Inspection: normal respiratory effort Auscultation: clear to auscultation bilaterally Cardio Rhythm: regular rhythm Heart sounds: S1 normal heart sound present and S2 normal heart sound present Back/Spine/Pelvis Other: Reproducible tenderness in the paraspinal region of lower thoracic and upper lumbar region, straight leg rising 90 degrees bilaterally Extrem Other: 1+ nonpitting edema both lower extremities no calf tenderness Coding Level of Care Code Est Pt Level 4 (32080) Diagnoses Venous insufficiency of both lower extremities I87.2 URI (upper respiratory infection) J06.9 Asthma J45.909 Assessment & Plan Assessment & Plan (1) Venous insufficiency of both lower extremities: Code(s): I87.2 - Venous insufficiency (chronic) (peripheral) Category: Medical Plan: Obtain venous Doppler to evaluate for insufficiency and referred to vascular surgeon. Patient was advised to wear compression knee-highs (2) URI (upper respiratory infection): Code(s): J06.9 - Acute upper respiratory infection, unspecified Category: Medical Plan: Supportive care discussed with the patient meloxicam 15 mg daily is prescribed for back pain (3) Asthma: Code(s): J45.909 - Unspecified asthma, uncomplicated Category: Medical Plan: Continue Advair and albuterol p.r.n. Orders: Orders venous insuf bilat Today I87.2 - Venous insufficiency (chronic) (peripheral) Referrals Vascular Surgery Referral I87.2 - Venous insufficiency (chronic) (peripheral) Medications: New meloxicam 15 mg PO DAILY 10 tabs 0RF
[2024-03-25 14:34] VITALS: BP 118/76; PULSE 80; O2SAT 100; BMI 32.2
== END 2024-03-25 15:40 | disposition home or self-care (01) ==
LOC: HO.HMCC 14:27
PROVIDERS: PCP Internal Medicine; Visit Provider Internal Medicine
DX: I87.2 Venous insufficiency (chronic) (peripheral) (principal); J06.9 Acute upper respiratory infection, unspecified; J45.909 Unspecified asthma, uncomplicated

== ENCOUNTER → 2024-03-25 14:27 | Outpatient (BNVA) | payer BC, SELFPAY | PROVIDERS: PCP Internal Medicine; Visit Provider Internal Medicine ==

== ENCOUNTER 2024-04-22 08:16 | Outpatient (REF) | payer BC, SELFPAY ==
--- NOTE | ~2024-04-22 | US_ITS ---
CLINICAL HISTORY: I87.2 - Venous insufficiency (chronic) (peripheral) Venous duplex ultrasound bilateral lower extremity Comparison: None Findings: The visualized deep veins are fully compressible with normal Doppler color flow and spectral tracings. No popliteal cyst. There is no significant venous reflux. IMPRESSION: 1. Negative for bilateral lower extremity deep vein thrombosis. This document has been electronically signed by: Baldo Moran MD on 04/23/2024 07:57:05
== END 2024-04-22 08:17 | disposition home or self-care (01) ==
LOC: HO.US 08:16
PROVIDERS: PCP Internal Medicine; Visit Provider Internal Medicine
DX: I87.2 Venous insufficiency (chronic) (peripheral) (principal)
CPT/HCPCS: 93970

== ENCOUNTER → 2024-04-22 08:24 | Outpatient (BNV) | payer BC, SELFPAY | PROVIDERS: PCP Internal Medicine; Visit Provider Specialist | DX: I87.2 Venous insufficiency (chronic) (peripheral) (principal) | CPT/HCPCS: 93970 ==

== ENCOUNTER 2024-06-03 14:21 | Outpatient (AMB) | payer BC, SELFPAY ==
--- NOTE | 2024-06-03 14:23 | MHC.OFFVIS ---
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 Pt states Left is worse than Right LE. Pt also states that she does bruise very easy and has wounds that are difficult to heal. Started 2 yrs ago and worsening since. States started s/p covid vaccine. Had US 04/22/24. Works in seated position and does elevate. 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 She states this has been going on for over a year, she initially noticed it after getting her 1st COVID vaccine. She states she also at the same time, she began having lower back pain with pain radiating down her left leg. She states she has been getting these random bruises all over her legs which have been taking a long time to go away, sometimes weeks to months. She states she works at a job where she sits down all the time but does try to elevate her legs as much as possible during the day. She does elevate her legs when she gets home. She states that elevating her legs is helped a lot. She has not tried any other modalities for pain relief. She states she feels like her legs feel weak as well. She has no history of blood clots or PE and there was no family history of any anticoagulation or bleeding disorders. She is not a diabetic and does not smoke. 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 Housing: House Patient Tobacco Use Status: Never used Tobacco e-Cigarette/Vaping Use: Never Used service: No Current occupational status: employed 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 Sexual 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: Straight/Heterosexual Gender identity: Female Cognitive needs: No Hearing needs: No Vision needs: No Female Reproductive History Menstrual Age of Menarche: 8 Review of Systems Const Reports as per HPI and Denies weakness ENT Reports Normal hearing present and Denies dizziness Card Reports as per HPI, Denies chest pain, Denies chest pain at rest, Denies chest pain with activity, Denies dyspnea and Denies dyspnea on exertion Resp Reports as per HPI, Denies cough, Denies dyspnea and Denies dyspnea on exertion GI Reports as per HPI, Denies abdominal pain, Denies nausea and Denies vomiting Musc Denies numbness Skin/Breast Reports as per HPI, Denies erythema and Denies wounds Neuro Reports Normal hearing present, Denies dizziness, Denies numbness, Denies Sensory deficit (Neuro) and Denies weakness Psych Reports no additional complaints Endo Reports no additional complaints Physical Exam Vital Signs: BMI result Body Mass Index 32.2 Const General: healthy appearing and no acute distress Orientation/consciousness: patient oriented x3 HEENT Head: Yes normal to inspection Ears: hearing grossly normal bilaterally Mouth: Normal oral and palatal mucosa present Resp Effort & Inspection: normal respiratory effort and able to speak in complete sentences Auscultation: clear to auscultation bilaterally Cardio Jugular venous distension: no JVD Rate: regular rate Rhythm: regular rhythm Heart sounds: S1 normal heart sound present and S2 normal heart sound present Bruits: no abdominal aortic bruits, no carotid bruits, no femoral bruits and no renal bruits Peripheral pulses: Peripheral pulses 2+ throughout GI Inspection: Yes normal to inspection Palpation (GI): No Abdominal aortic bruit present Skin General skin exam: no rashes or lesions noted Wounds: no wounds Hair: normal Neuro General: patient oriented x3 Cranial nerves: Yes Normal hearing present Cognition (Neuro): normal cognition Gait exam (Neuro): Normal gait present Motor exam (neuro): 5/5 motor strength present throughout Sensory Exam: No Sensory deficit (Neuro) Extrem Other: Left lower extremity: trace peripheral edema. No varicosities or tortuosities noted. Small bruise noted on the posterior aspect of the mid calf. General: Yes normal to inspection, Yes full ROM, Yes capillary refill normal and Yes normal gait Results Reviewed Results Reviewed: Brief summary of venous insufficiency testing is as follows: right great saphenous vein: negative right small saphenous vein: negative right accessory vein: none present left great saphenous vein: negative left small saphenous vein: negative left accessory vein: none present Please note there is no evidence of any venous aneurysms or significant tortuosity Assessment & Plan Assessment & Plan (1) Venous insufficiency of both lower extremities: Code(s): I87.2 - Venous insufficiency (chronic) (peripheral) Category: Medical Plan: Alla is presenting today on a referral from her PCP for left greater than right heaviness, pain and intermittent bruising. Her PCP ordered a venous insufficiency ultrasound, which was negative for venous insufficiency. This was performed on 04/22/2024. She states these symptoms started approximately a year ago after she obtained her 1st COVID vaccine. She states that the same time she began having some lower back pain with radiation down the left leg. She states the pain gets better with elevation. She has not tried anything else for the pain and heaviness. We discussed that there was no venous insufficiency found and she did have very strong palpable pulses with no symptoms of claudication. We discussed that this is likely not a vascular problem. We discussed the importance of compression stockings, elevation, and physical activity. We were able to provide her with some compression stockings today. I discussed the importance of wearing them while she is working, for no more than 12 hours per day. I discussed with her to reach back out to her PCP for possible further investigation of her back pain, which could be contributing to this leg pain she continues to have. Thank you for allowing us to participate in the patient's care. If there are any questions or concerns, please do not hesitate to reach out to us. Coding Level of Care Code New Pt Level 4 (71739) Diagnoses Venous insufficiency of both lower extremities I87.2 Comment Review of venous insufficiency ultrasound
[2024-06-03 14:24] VITALS: BMI 32.2
== END 2024-06-03 14:41 | disposition home or self-care (01) ==
PROVIDERS: PCP Internal Medicine; Visit Provider Physician Assistant Surgical
DX: I87.2 Venous insufficiency (chronic) (peripheral) (principal)
CPT/HCPCS: 99204

== ENCOUNTER → 2024-06-03 14:21 | Outpatient (BNVA) | payer BC, SELFPAY | PROVIDERS: PCP Internal Medicine; Visit Provider Physician Assistant Surgical ==

== ENCOUNTER 2024-08-05 12:49 | Outpatient (AMB) | payer BC, SELFPAY ==
--- NOTE | 2024-08-05 12:51 | A.OFFPC_ITS ---
Vital Signs 08/05/24 13:00 Height 5 ft Weight 164 lb BMI 32.0 BP 120/80 Blood Pressure Location Lt brachial Position Sitting Respiration 20 Pulse 70 Pulse Source Pulse Oximeter Temp 98.7 F Temp Source Oral Pulse Oximetry (%) 100 Oxygen Delivery Method Room Air Intake Visit Reasons: Bronchitis? Intake Note: Pt is here today for a sick visit. Pt c/o cough since last week. Pt states that the cough has gotten worst, sinus pressure congestion. Allergies oxycodone [From PERCOCET] Allergy (Unknown, Verified 08/05/24 13:01) ITCHING Medication List - Last Reconciled 08/05/24 by Ginna Mclain MD albuterol sulfate 90 mcg/actuation 2 puffs inhalation Q6H PRN amoxicillin-pot clavulanate 875-125 mg 1 tab PO BID docusate sodium 100 mg PO BEDTIME fluticasone propion-salmeterol 230-21 mcg/actuation (Advair HFA) 2 puffs inhalation BID hydrocortisone 2.5% (Proctosol HC) 1 appl RI BID-QID PRN pantoprazole 40 mg PO DAILY Tobacco use date assessed: 08/05/24 Dental Screening Dental Screen Date: 08/05/24 Did you have a dental visit in the last 12 months?: Yes Did you have a dental problem in the last 6 months where you did not have access to dental care?: No Was dental information given to patient?: Patient has dentist HPI Bronchitis? HPI Details Pt presents c/o 1 week of cough with yellow sputum, worse at night, sinus pain and pressure. 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 Carlos Enrique Eng, Debora Cabezas, Alejandro Chilel and colleagues, with an educational abram from [employer]. Review of Systems Const All systems reviewed & are unremarkable except as noted in HPI and below Eyes Reports no additional complaints ENT Reports no additional complaints Card Reports no additional complaints Resp Reports no additional complaints GI Reports no additional complaints Physical exam (Primary Care) Vital Signs: Last Vital Signs Temp 98.7 F 08/05/24 13:00 Pulse 70 08/05/24 13:00 Resp 20 08/05/24 13:00 BP 120/80 08/05/24 13:00 Pulse Ox 100 08/05/24 13:00 Oxygen Delivery Method Room Air 08/05/24 13:00 BMI result Body Mass Index 32.0 Tobacco/Smoking Status: Tobacco use Status Tobacco use date assessed 08/05/24 08/05/24 13:05 Patient Tobacco Use Status Never used Tobacco 08/05/24 13:05 e-Cigarette/Vaping Use Never Used 08/05/24 12:52 Thrive Assessment: Date of Thrive Assessment Date Thrive assessed 08/25/23 08/05/24 12:52 Const General: no acute distress HENMT Ears: TM's normal bilaterally General nose exam: Abnormal mucous membranes and turbinates present erythematous Face and sinus: Yes sinus tenderness Throat: Yes postnasal drainage Eyes General: appearance normal, both eyes and all related structures Neck Neck: Yes no lymphadenopathy and Yes supple Resp Effort & Inspection: normal respiratory effort Auscultation: diminished lung sounds Cardio Rhythm: regular rhythm Heart sounds: S1 normal heart sound present and S2 normal heart sound present Coding Level of Care Code Est Pt Level 3 (89034) Diagnoses Sinusitis J32.9 Asthma J45.909 Assessment & Plan Assessment & Plan (1) Sinusitis: Code(s): J32.9 - Chronic sinusitis, unspecified Category: Medical Plan: Augmentin 875 mg for 10 days is prescribed (2) Asthma: Comment: follows Pulmonology at [facility]-has daily advair & prn albuterol Code(s): J45.909 - Unspecified asthma, uncomplicated Category: Medical Plan: Patient was advised to increase Advair to twice a day and use albuterol as needed Medications: New amoxicillin-pot clavulanate 875-125 mg 1 tab PO BID 20 tabs 0RF amoxicillin-pot clavulanate 875-125 mg 1 tab PO BID 20 tabs 0RF
[2024-08-05 13:00] VITALS: BP 120/80; PULSE 70; RESP 20; TEMP 37.1; O2SAT 100; BMI 32.0
== END 2024-08-05 14:34 | disposition home or self-care (01) ==
LOC: HO.HMCC 12:50
PROVIDERS: PCP Internal Medicine; Visit Provider Internal Medicine
DX: J32.9 Chronic sinusitis, unspecified (principal); J45.909 Unspecified asthma, uncomplicated

== ENCOUNTER → 2024-08-05 12:49 | Outpatient (BNVA) | payer BC, SELFPAY | PROVIDERS: PCP Internal Medicine; Visit Provider Internal Medicine ==

== ENCOUNTER 2024-09-20 11:59 | Outpatient (AMB) | payer BC, SELFPAY ==
[2024-09-20 12:16] VITALS: BP 106/68; PULSE 81; RESP 18; TEMP 36.8; O2SAT 99; BMI 32.2
--- NOTE | 2024-09-20 12:16 | A.OFFPC_ITS ---
Vital Signs 09/20/24 12:16 Height 5 ft Weight 165 lb BMI 32.2 BP 106/68 Blood Pressure Location Rt brachial Position Sitting Respiration 18 Pulse 81 Pulse Source Pulse Oximeter Temp 98.3 F Temp Source Oral Pulse Oximetry (%) 99 Oxygen Delivery Method Room Air Intake Visit Reasons: Annual PE Intake Note: Pt is here today for PE. Pt states that she needs a TB test for her job. Allergies oxycodone [From PERCOCET] Allergy (Unknown, Verified 09/20/24 12:16) ITCHING Medication List - Last Reconciled 09/20/24 by Ginna Mclain MD albuterol sulfate 90 mcg/actuation 2 puffs inhalation Q6H PRN docusate sodium 100 mg PO BEDTIME fluticasone propion-salmeterol 230-21 mcg/actuation (Advair HFA) 2 puffs inhalation BID pantoprazole 40 mg PO DAILY Tobacco use date assessed: 09/20/24 Dental Screening Dental Screen Date: 08/05/24 HPI Annual PE HPI Details Patient presents for physical. Chronic asthma is controlled on Advair. Patient complains of chronic for years bilateral groin and anterior thigh pain and muscle spasms waking patient at night. She also reports some stiffness in the groins in the morning but denies any pain when walking and during her daily regular activities [facility] Medical History (Updated 09/20/24 @ 15:34 by Ginna Mclain MD) Chronic pain of both hips Chronic headaches Asthma GERD (gastroesophageal reflux disease) Internal and external bleeding hemorrhoids Surgical History Hx of hysterectomy Hx of colonoscopy History of bunionectomy History of esophagogastroduodenoscopy (EGD) Family History Father Dementia Mother Diabetes Maternal Aunt Stomach cancer Ovarian cancer Social History Household Members Other:: SINGLE, 2 children, 21 and 26, 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 1. Little interest or pleasure in doing things: not at all 2. Feeling down, depressed, or hopeless: not at all 3. Trouble falling or staying asleep, or sleeping too much: several days 4. Feeling tired or having little energy: several days 5. Poor appetite or overeating: not at all 6. Feeling bad about yourself - or that you are a failure or have let yourself or your family down: not at all 7. Trouble concentrating on things, such as reading the newspaper or watching television: several days 8. Moving or speaking so slowly that other people could have noticed. Or the opposite - being so fidgety or restless that you have been moving around a lot more than usual: not at all 9. Thoughts that you would be better off or of hurting yourself in some way: not at all Total score: 3 Depression Screening Interpretation: Negative Depression Screening Done: Yes 87001 - PHQ-9 Billing: Yes Source: Developed by Drs. Carlos Enrique Eng, Debora Cabezas, Alejandro Chilel and colleagues, with an educational abram from [employer]. Thrive Questionnaire Date Thrive assessed: 09/20/24 I am a: Patient What is your living situation today?: I have a steady place to live Within the past 12 months, did the food you bought not last and you didn't have the money to get more?: Never true Within the past 12 months, did you worry whether your food would run out before you got money to buy more?: Never true Do you have trouble paying for medicines?: No Do you have trouble getting transportation to medical appointments?: No Do you have trouble paying your heating and electricity bill?: No Do you have trouble taking care of your child, family member or friend?: No Do you have trouble with day-to-day activities such as bathing, preparing meals, shopping, managing finances, etc.?: No Are you currently unemployed and looking for a job?: No Are you interested in more education?: No Please select the resources that you would like help with: None THRIVE Score: 0 AUDIT C Alcohol Use Questionnaire (AUDIT-C) 1. How often do you have a drink containing alcohol?: Monthly or less 2. How many drinks containing alcohol do you have on a typical day when you are drinking?: 1 or 2 3. How often do you have six or more drinks on one occasion?: Never Total Score: 1 COLE-7 AMB Questionnaire COLE-7 Date COLE - 7 assessed: 09/20/24 Feeling nervous, anxious, or on edge: 2 = More than half the days Not being able to stop or control worryin = Several days Worrying too much about different things: 1 = Several days Trouble relaxin = Several days Being so restless that it is hard to sit still: 1 = Several days Becoming easily annoyed or irritable: 1 = Several days Feeling afraid as if something awful might happen: 0 = Not at all Total COLE-7 score (0-4 normal; 5-9 mild; 10-14 moderate; 15-21 severe): 7 Source: Developed by Drs. Carlos Enrique Eng, Debora Cabezas, Alejandro Chilel and colleagues, with an educational abram from [employer]. COLE-7 Assessment Billing COLE-7 Assessment Tool: COLE-7 Assessment 57190 Review of Systems Const All systems reviewed & are unremarkable except as noted in HPI and below Eyes Reports no additional complaints ENT Reports no additional complaints Card Reports no additional complaints Resp Reports no additional complaints GI Reports no additional complaints Reports no additional complaints Physical exam (Primary Care) Vital Signs: Last Vital Signs Temp 98.3 F 09/20/24 12:16 Pulse 81 09/20/24 12:16 Resp 18 09/20/24 12:16 BP 106/68 09/20/24 12:16 Pulse Ox 99 09/20/24 12:16 Oxygen Delivery Method Room Air 09/20/24 12:16 BMI result Body Mass Index 32.2 Tobacco/Smoking Status: Tobacco use Status Tobacco use date assessed 09/20/24 09/20/24 12:28 Patient Tobacco Use Status Never used Tobacco 09/20/24 12:28 e-Cigarette/Vaping Use Never Used 09/20/24 12:17 PHQ-9: PHQ-9 Score PHQ-9: Total score 3 09/20/24 12:28 Depression Screening Interpretation: Negative Thrive Assessment: Date of Thrive Assessment Date Thrive assessed 09/20/24 09/20/24 12:19 Const General: no acute distress HENMT Head: Yes normal to inspection Mouth: Normal oral and palatal mucosa present Eyes General: appearance normal, both eyes and all related structures Neck Neck: Yes no lymphadenopathy and Yes supple Resp Effort & Inspection: normal respiratory effort Auscultation: clear to auscultation bilaterally Cardio Rhythm: regular rhythm Heart sounds: S1 normal heart sound present and S2 normal heart sound present GI Inspection: Yes normal to inspection Palpation (GI): Soft to palpation Percussion: Yes normal to percussion Auscultation: normal bowel sounds Extrem Other: There is a slightly decreased range of motion of both hips, there is no tenderness of the trochanteric area and anterior thighs or soft tissue swelling General: Yes no clubbing, cyanosis or edema Coding Level of Care Code Est Pt Prev Care 40-64y(65383) Diagnoses Chronic pain of both hips M25.551; M25.552; G89.29 Annual physical exam Z00.00 Additional Codes COLE-7 Assessment Billing - COLE-7 Assessment Tool: COLE-7 Assessment 25302 ([id number]) PHQ-9 - 16067 - PHQ-9 Billing: Yes ([id number]) Assessment & Plan Assessment & Plan (1) Chronic pain of both hips: Code(s): M25.551 - Pain in right hip; M25.552 - Pain in left hip; G89.29 - Other chronic pain Category: Medical Plan: Obtain x-rays of both hips, referred to physical therapy. Patient was advised to increase fluid intake and try magnesium supplement for muscle spasm (2) Annual physical exam: Code(s): Z00.00 - Encounter for general adult medical examination without abnormal findings Category: Medical Plan: Well-balanced diet regular physical activity discussed with the patient she is up-to-date with Pap smear and pelvic exam by network manager mammogram and had negative colonoscopy in 2019 Orders: Orders XR hips SOFIA min 3V Today G89.29 - Other chronic pain, M25.551 - Pain in right hip, M25.552 - Pain in left hip Lipid Panel Today G89.29 - Other chronic pain, M25.551 - Pain in right hip, M25.552 - Pain in left hip, Z00.00 - Encounter for general adult medical examination without abnormal findings TSH reflex Free T4 Today G89.29 - Other chronic pain, M25.551 - Pain in right hip, M25.552 - Pain in left hip, Z00.00 - Encounter for general adult medical examination without abnormal findings Vitamin B12 and Folate Today G89.29 - Other chronic pain, M25.551 - Pain in right hip, M25.552 - Pain in left hip, Z00.00 - Encounter for general adult medical examination without abnormal findings Rheumatoid Factor Today G89.29 - Other chronic pain, M25.551 - Pain in right hip, M25.552 - Pain in left hip, Z00.00 - Encounter for general adult medical examination without abnormal findings Cyclic Citrullinated Peptide Today G89.29 - Other chronic pain, M25.551 - Pain in right hip, M25.552 - Pain in left hip, Z00.00 - Encounter for general adult medical examination without abnormal findings Magnesium Today G89.29 - Other chronic pain, M25.551 - Pain in right hip, M25.552 - Pain in left hip, Z00.00 - Encounter for general adult medical examination without abnormal findings T Spot TB Today G89.29 - Other chronic pain, M25.551 - Pain in right hip, M25.552 - Pain in left hip, Z00.00 - Encounter for general adult medical examination without abnormal findings Comprehensive [place]. Panel Fast Today G89.29 - Other chronic pain, M25.551 - Pain in right hip, M25.552 - Pain in left hip, Z00.00 - Encounter for general adult medical examination without abnormal findings Complete Blood Count Auto Diff Today G89.29 - Other chronic pain, M25.551 - Pain in right hip, M25.552 - Pain in left hip, Z00.00 - Encounter for general adult medical examination without abnormal findings TAYLOR Reflex Titer and Pattern Today G89.29 - Other chronic pain, M25.551 - Pain in right hip, M25.552 - Pain in left hip, Z00.00 - Encounter for general adult medical examination without abnormal findings PT Evaluation and Treatment Today G89.29 - Other chronic pain, M25.551 - Pain in right hip, M25.552 - Pain in left hip, Z00.00 - Encounter for general adult medical examination without abnormal findings
== END 2024-09-20 13:12 | disposition home or self-care (01) ==
LOC: HO.HMCC 11:59
PROVIDERS: PCP Internal Medicine; Visit Provider Internal Medicine
DX: M25.551 Pain in right hip (principal); M25.552 Pain in left hip; G89.29 Other chronic pain; Z00.00 Encounter for general adult medical examination without abnormal findings

== ENCOUNTER 2024-09-20 11:59 | Outpatient (REF) | payer BC, SELFPAY ==
--- NOTE | ~2024-09-20 | XR_ITS ---
EXAMINATION: XR BILATERAL HIPS CLINICAL INFORMATION: M25.551 - Pain in right hip COMPARISON: None available. TECHNIQUE: AP view of the pelvis and single views of each hip were obtained. FINDINGS: No fracture or dislocation. No bone lesion. Alignment is anatomic. Hip joint spaces are maintained. Normal femoral head contour without evidence of AVN. Normal acetabular coverage. Sacroiliac joints and pubic symphysis are normal. Normal-appearing soft tissues. XR/XR hips SOFIA min 3V IMPRESSION: Normal bilateral hips. Electronically signed by: Elfego Zamorano MD 09/20/2024 03:01 PM EDT
== END 2024-09-20 12:00 | disposition home or self-care (01) ==
LOC: HO.HMGCX 11:59
PROVIDERS: PCP Internal Medicine; Visit Provider Internal Medicine
DX: Z00.00 Encounter for general adult medical examination without abnormal findings (principal); M25.551 Pain in right hip; M25.552 Pain in left hip; G89.29 Other chronic pain; Z13.31 Encounter for screening for depression
CPT/HCPCS: 73522; 96127

== ENCOUNTER → 2024-09-20 13:19 | Outpatient (BNV) | payer BC, SELFPAY | PROVIDERS: PCP Internal Medicine; Visit Provider Radiology Diagnostic Radiology | DX: M25.551 Pain in right hip (principal) | CPT/HCPCS: 73522 ==

== ENCOUNTER 2024-09-21 07:31 | Outpatient (REF) | payer BC, SELFPAY ==
[2024-09-21 10:30] LABS: MANUAL DIFF FLAG NO
[2024-09-21 10:35] LABS: Basophils Percent Auto 0.8 % (0-2); Eosinophils Absolute Auto 0.2 X10*3/uL (0.0-0.4); Eosinophils Percent Auto 4.4 % (0-4); Hematocrit 35.6 % (37.0-47.0); Imm Gran Abs Auto 0.01 X10*3/uL (0.00-0.03); Imm Gran Pct Auto 0.3 % (0.0-0.4); Lymphocytes Absolute Auto 1.6 X10*3/uL (1.2-4.9); Lymphocytes Percent Auto 44.1 % (20-40); Mean Corpuscular HGB Conc 33.7 g/dl (31.0-35.0); Mean Corpuscular Hemoglobin 30.8 pg (27.0-33.0); Mean Corpuscular Volume 91.5 fL (80.0-98.0); Mean Platelet Volume 9.5 fL (9.4-12.3); Monocytes Absolute Auto 0.3 X10*3/uL (0.1-1.2); Monocytes Percent Auto 7.9 % (2-11); Neutrophils Absolute Auto 1.6 x10*3/uL (2.0-8.3); Neutrophils Percent Auto 42.5 % (45-73); Platelet Count 248 X10*3/uL (160-400); Red Blood Count 3.89 X10*6/uL (4.20-5.50); Red Cell Distribution Width 13.3 % (11.0-16.0); White Blood Count 3.7 X10*3/uL (4.8-10.8)
[2024-09-21 10:56] LABS: Rheumatoid Factor < 13.0 IU/mL (<15.0)
[2024-09-21 11:06] LABS: Alanine Aminotransferase 24 U/L (0-31); Albumin Level 4.4 g/dL (3.5-5.0); Alkaline Phosphatase 66 U/L (39-117); Anion Gap 10 (12-20); Aspartate Amino Transferase 25 U/L (5-31); Bilirubin Total 0.5 mg/dL (0.0-1.0); Blood Urea Nitrogen 12 mg/dL (9-16); Calcium 9.7 mg/dL (8.4-10.2); Carbon Dioxide 26 mmol/L (22-29); Chloride 108 mmol/L (96-108); Cholesterol 187 mg/dL (<200); Estimated Glomerular Filt Rate > 60; Glucose Fasting 83 mg/dL (60-99); HDL Cholesterol 69 mg/dL (>40); LDL Cholesterol Calculated 106 mg/dL (<100); Magnesium 2.1 mg/dL (1.6-2.6); Potassium 4.3 mmol/L (3.3-5.1); Sodium 140 mmol/L (135-145); Triglycerides 61 mg/dL (<150)
[2024-09-21 11:23] LABS: TSH reflex Free T4 1.79 uIU/mL (0.32-4.0)
[2024-09-21 11:25] LABS: Folate 7.9 ng/mL (> or = 4.0); Vitamin B12 416 pg/mL (200-900)
[2024-09-23 11:49] LABS: Anti Nuclear Antibody Screen NEGATIVE (NEGATIVE)
[2024-09-24 05:43] LABS: TS Negative Control Passed; TS Panel A 0; TS Panel B 0; TS Positive Control Passed; TSpotTB Negative (Negative)
[2024-09-27 15:43] LABS: Cyclic Citrullinated Peptide <16 UNITS
== END 2024-09-21 07:32 | disposition home or self-care (01) ==
LOC: HO.HMGCLDS 07:31
PROVIDERS: PCP Internal Medicine; Visit Provider Internal Medicine
DX: Z00.00 Encounter for general adult medical examination without abnormal findings (principal); M25.551 Pain in right hip; M25.552 Pain in left hip; G89.29 Other chronic pain; Z13.29 Encounter for screening for other suspected endocrine disorder; Z13.220 Encounter for screening for lipoid disorders
CPT/HCPCS: 36415; 80053; 80061; 82607; 82746; 83735; 84443; 85025; 86038; 86200; 86431; 86481

== ENCOUNTER 2024-10-27 09:57 | Outpatient (REF) | payer BC, SELFPAY ==
--- NOTE | ~2024-10-27 | XR_ITS ---
Exam: X-ray, bilateral knees.XR KNEE 1-2 VIEWS BILATERAL TECHNIQUE: Four views lower extremity joint, bilateral knees INDICATION: Bilateral knee pain COMPARISON: None available. FINDINGS: RIGHT KNEE: There is no joint effusion. Joint spaces are preserved. There is no soft tissue calcification. There are no osteophytes. Left knee: There is no joint effusion. Joint spaces are preserved. There is no soft tissue calcification. There are no osteophytes. XR/XR Knee Aaron 1or 2V IMPRESSION: Right knee: Unremarkable right knee Left knee: Unremarkable left knee Electronically signed by: Jeffrey Harvey MD 10/27/2024 12:01 PM EDT
--- NOTE | ~2024-10-27 | XR_ITS ---
EXAMINATION: XR LUMBAR SPINE 2-3 VIEWS HISTORY: M54.30 - Sciatica, unspecified side COMPARISON: There are no prior studies for comparison. FINDINGS: AP, lateral, and coned down views of the lumbar spine are submitted. Osseous mineralization is normal. Five nonrib-bearing lumbar vertebral bodies are identified, maintaining normal height and alignment without evidence of fracture or spondylolisthesis. The intervertebral disc spaces are preserved. The posterior elements are intact. The visualized paraspinal soft tissues are unremarkable. XR/XR lumbar spine 2-3V IMPRESSION: Unremarkable examination of the lumbar spine. Electronically signed by: Carlos Enrique Baer MD 10/27/2024 12:02 PM EDT
--- OUTSIDE RECORDS SUMMARY | 2024-10-27 12:24 | XMS_ITS ---
Author Name [facility] Organization Unknown Care Team Organization Name Specialty Phone Email Start Date End Da te [facility] A[facility]a [facility] 02/12/2022 4
[2024-10-28 09:19] LABS: Lyme Abs Screen <0.90 index
== END 2024-10-27 09:58 | disposition home or self-care (01) ==
LOC: HO.HMGCX 09:57
PROVIDERS: PCP Internal Medicine; Visit Provider Internal Medicine
DX: M25.561 Pain in right knee (principal); M25.562 Pain in left knee; M54.30 Sciatica, unspecified side; M79.604 Pain in right leg; M79.605 Pain in left leg; J45.909 Unspecified asthma, uncomplicated; M25.551 Pain in right hip; M25.552 Pain in left hip; G89.29 Other chronic pain
CPT/HCPCS: 36415; 72100; 73560; 82550; 86140; 86617; 86618

== ENCOUNTER 2024-10-27 09:57 | Outpatient (AMB) | payer BC, SELFPAY ==
[2024-10-27 10:15] VITALS: BP 120/78; PULSE 86; RESP 18; TEMP 36.8; O2SAT 100; BMI 32.6
--- NOTE | 2024-10-27 10:15 | MHC.PC.OV ---
Vital Signs 10/27/24 10:15 Height 5 ft Weight 167 lb BMI 32.6 BP 120/78 Blood Pressure Location Lt brachial Position Sitting Respiration 18 Pulse 86 Pulse Source Pulse Oximeter Temp 98.3 F Temp Source Oral Pulse Oximetry (%) 100 Oxygen Delivery Method Room Air Intake Visit Reasons: Severe leg pain Intake Note: Pt is here today for a sick visit. Pt c/o bilateral hip pain that goes down her legs for almost a year now. Allergies oxycodone (From PERCOCET) Allergy (Unknown, Verified 10/27/24 10:33) ITCHING Medication List - Last Reconciled 10/27/24 by Ginna Mclain MD albuterol sulfate 90 mcg/actuation 2 puffs inhalation Q6H PRN docusate sodium 100 mg PO BEDTIME fluticasone propion-salmeterol 230-21 mcg/actuation (Advair HFA) 2 puffs inhalation BID gabapentin 300 mg PO BEDTIME pantoprazole 40 mg PO DAILY Tobacco use date assessed: 10/27/24 Dental Screening Dental Screen Date: 08/05/24 HPI Severe leg pain HPI Details Pt presents complaining of persistent chronic( for 1 year) pain in both lower extremities, muscle cramps and stiffness in the legs worse in the morning and also waking patient at night. The pain is radiating from lateral thighs to both lower extremities. She also reports bilateral knee pain and stiffness left worse than right Patient also reports lower back pain and stiffness on and off. Patient has been taking ibuprofen with only temporary relief. She denies any weakness or numbness in extremities, change in bowel or bladder function. Patient denies any other joint pain stiffness swelling, fever chills night sweats weight loss rash. Patient symptoms started after getting COVID vaccine a year ago. 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 Carlos Enrique Eng, Debora Cabezas, Alejandro Chilel and colleagues, with an educational abram from [employer]. Review of Systems Const All systems reviewed & are unremarkable except as noted in HPI and below Eyes Reports no additional complaints ENT Reports no additional complaints Card Reports no additional complaints Resp Reports no additional complaints GI Reports no additional complaints Reports no additional complaints Physical exam (Primary Care) Vital Signs: Last Vital Signs Temp 98.3 F 10/27/24 10:15 Pulse 86 10/27/24 10:15 Resp 18 10/27/24 10:15 BP 120/78 10/27/24 10:15 Pulse Ox 100 10/27/24 10:15 Oxygen Delivery Method Room Air 10/27/24 10:15 BMI result Body Mass Index 32.6 Tobacco/Smoking Status: Tobacco use Status Tobacco use date assessed 10/27/24 10/27/24 10:37 Patient Tobacco Use Status Never used Tobacco 10/27/24 10:16 e-Cigarette/Vaping Use Never Used 10/27/24 10:16 Thrive Assessment: Date of Thrive Assessment Date Thrive assessed 09/20/24 10/27/24 10:16 Const General: no acute distress HENMT Head: Yes normal to inspection Face and sinus: Yes normal facial exam Resp Effort & Inspection: normal respiratory effort Auscultation: clear to auscultation bilaterally Cardio Rhythm: regular rhythm Heart sounds: S1 normal heart sound present and S2 normal heart sound present GI Inspection: Yes normal to inspection Palpation (GI): Soft to palpation Percussion: Yes normal to percussion Auscultation: normal bowel sounds Back/Spine/Pelvis Thoracic/Lumbar Spine: straight leg raise negative bilaterally, No thoraco-lumbar spasm and No lumbar spinal tenderness Neuro Cranial nerves: Yes CN's II-XII intact bilaterally Gait exam (Neuro): Normal gait present Motor exam (neuro): 5/5 motor strength present throughout Extrem Other: Reproducible tenderness in both greater trochanteric region, there is a full range of motion in both hips and knees General: Yes no clubbing, cyanosis or edema Coding Level of Care Code Est Pt Level 4 (88536) Diagnoses Knee pain, bilateral M25.561; M25.562 Sciatica M54.30 Bilateral lower extremity pain M79.604; M79.605 Asthma J45.909 Assessment & Plan Assessment & Plan (1) Knee pain, bilateral: Code(s): M25.561 - Pain in right knee; M25.562 - Pain in left knee Category: Medical Plan: Obtain x-rays of both knees (2) Sciatica: Code(s): M54.30 - Sciatica, unspecified side Category: Medical Plan: Check lumbar x-ray and patient is referred for physical therapy (3) Bilateral lower extremity pain: Code(s): M79.604 - Pain in right leg; M79.605 - Pain in left leg Category: Medical Plan: Check arthritis panel, try gabapentin 300 mg q.h.s.. Patient may increase to 600 mg after week if she has no symptoms relief. Follow-up in 6 weeks (4) Asthma: Comment: follows Pul[facility]ology at [facility], controlled on Advair & prn albuterol Code(s): J45.909 - Unspecified asthma, uncomplicated Category: Medical Plan: Continue Advair and albuterol PRN Orders: Orders XR lumbar spine 2-3V Today M54.30 - Sciatica, unspecified side PT Evaluation and Treatment Today M54.30 - Sciatica, unspecified side C Reactive Protein Today G89.29 - Other chronic pain, M25.551 - Pain in right hip, M25.552 - Pain in left hip, M54.30 - Sciatica, unspecified side Lyme IgG/IgM w/reflex to WB Today G89.29 - Other chronic pain, M25.551 - Pain in right hip, M25.552 - Pain in left hip, M54.30 - Sciatica, unspecified side Creatine Kinase Total Today G89.29 - Other chronic pain, M25.551 - Pain in right hip, M25.552 - Pain in left hip, M54.30 - Sciatica, unspecified side Medications: New gabapentin 300 mg PO BEDTIME 90 caps 0RF
--- OUTSIDE RECORDS SUMMARY | 2024-10-27 10:44 | XMS_ITS | Patient Health Record ---
Author Organization [facility] Address [address] [place] [address] Care Team Providers Care Batch Freezer Name Role Phone Shannon Malone M.D. Primary Care Provider Unavail able SalgadoCarlos Enrique Unavailable [phone] Reason For Referral No Information Medications Medication SIG (Take, Route, Frequency, Duration) Notes Start Date End Date Status Omeprazole 20 MG 1 capsule po QD for 30 Active Hyoscyamine Sulfate 0.125 MG 1-2 tablets Orally Q 4-6 hours as needed for abdominal discomfort for 30 days 03/25/2012 Active Ventolin HFA Active PriLOSEC Active Problems Problem Type SNOMED Code ICD Code Onset Dates Problem Status W/U Status Risk Notes Problem Esophageal reflux (858666868) Esophageal reflux (530.81) Active confirmed Problem Epigastric pain (96729603) Abdominal pain, epigastric (789.06) Active confirmed Problem Irritable bowel (03924645) Irritable bowel (564.1) Active confirmed Problem Gastroesophageal reflux disease (831549075) GERD (gastroesophag eal reflux disease) (530.81) Active confirmed Plan Of Treatment No Information Insurance Providers Payer Name Payer Address Payer Phone Subscriber Number Group Number Insured Name Patient Relationship to Insured Coverage Start Date Coverage End Date [employer] [address] [place] [address] will call back with add and #SHIRLEY ZHANG Self - patient is the insured Medical (General) History Medical History History ICD Code EGD 09-07-2010 with a HH and gastritis/H.p ylori esophageal reflux asthma Left ovarian cyst H. pylori Rx'd in 2010 Denies [place],DM,CVA,Lung disease,renal dise ase Negative GB U/S and HIDA with CCK Surgical History Surgery Date(Month/Year) breast reductiion
--- OUTSIDE RECORDS SUMMARY | 2024-10-27 10:44 | XMS_ITS | Clinical Summary ---
Author Organization [facility] Address [address] [place] [address] Phone Care Team Providers Care Software Test And Validation Engineer Name Role Phone Ginna Mclain MD Primary Care Provider [phone] Allergies No known active allergies Social History Tobacco Use Types Packs/Day Years Used Date Smoking Tobacco: Never Smokeless Tobacco: Never Tobacco Cessation:Counseling Given: Not Answered Alcohol Use Standard Drinks/Week Comments Never 0 (1 standard drink = 0.6 oz pur e alcohol) Education Answer Date Recorded Are you interested in more education? Not on bill e 03/21/2024 Are you concerned about learning? Not on file 03/21/2024 No 03/21/2024 No 03/21/2024 Digital Access Answer Date Recorded No 03/21/2024 No 03/21/2024 Reliable internet access at home? Not on file 03/21/2024 Device with a working camera? Not on file Intimate Partner Violence Answer Date R ecorded Are you denied basic needs s uch as food, clothing, or medical care? No 03/21/2024 In the past 12 months have y ou been in a relationship with a person who hurts, threatens, or tries to control you? No 03/21/2024 Are you denied basic needs s uch as food, clothing, or medical care? No 03/21/2024 In the past 12 months have y ou been in a relationship with a person who hurts, threatens, or tries to control you? No 03/21/2024 Comments Unknown Sex and Gender Information Value Date Recorded Sex Assigned at Not on file Legal Sex Female 11:30 AM EST Gender Identity Not on file Sexual Orientation Not on file Last Filed Vital Signs Vital Sign Reading Time Taken Comments Blood Pressure 112/84 03/21/2024 3:44 PM EST Pulse 77 03/21/2024 3:44 PM EST Temperature 37.2 C (99 F) 03/21/2024 3:44 PM EST Respiratory Rate 18 03/21/2024 3:44 PM EST Oxygen Saturation 100% 03/21/2024 3:44 PM EST Inhaled Oxygen Concentration - - Weight 73 kg (161 lb) 03/21/2024 12:38 PM EST Height 152.4 cm (5') 03/21/2024 12:38 PM EST Body Mass Index 31.44 03/21/2024 12:38 PM EST Plan of Treatment Health Maintenance Due Date Last Done Comments Adult Td,Tdap Booster 1978 LIPID PANEL 1978 DEPRESSION SCREENING 1990 HEPATITIS C SCREENING 1996 HIV ONE-TIME SCREENING (18-6 5 YEARS) 1996 PAP SMEAR 1999 SMOKING STATUS SCREENING (On ce After 26 Yrs) 2004 MAMMOGRAM 2018 COLOGUARD 2023 COLONOSCOPY 2023 COLORECTAL CANCER SCREENING 2023 FIT TEST 2023 FOBT 2023 SIGMOIDOSCOPY 2023 VIRTUAL COLONOSCOPY 2023 COVID-19 VACCINE ( - 2023-2 5 season) 2023 SCREENING FOR DIABETES 03/21/2027 03/21/2024 HEPATITIS A VACCINES Aged Out No long er eligible based on patient's age to complete this topic HIB VACCINES Aged Out No longer eligi ble based on patient's age to complete this topic MENINGOCOCCAL VACCINES (ACWY) Aged Out No longer eligible based on patient's age to complete this topic MENINGOCOCCAL VACCINES (B) Aged Out N o longer eligible based on patient's age to complete this topic PNEUMOCOCCAL VACCINES (0-49 years) Aged Out No longer eligible based on patient's age to complete this topic Medical Devices Not on file Insurance [facility] Care Teams Software Test And Validation Engineer Relationship Specialty Start Date End Date Ginna Mclain MD [address] [place] [address] PCP - General Internal Medicine 03/21/24 Additional Source Comments The information contained in this document represents components of the legal health record. It is not the complete legal health record.[facility]
== END 2024-10-27 11:25 | disposition home or self-care (01) ==
LOC: HO.HMCC 09:58
PROVIDERS: PCP Internal Medicine; Visit Provider Internal Medicine
DX: M25.561 Pain in right knee (principal); M25.562 Pain in left knee; M54.30 Sciatica, unspecified side; M79.604 Pain in right leg; M79.605 Pain in left leg; J45.909 Unspecified asthma, uncomplicated

== ENCOUNTER → 2024-10-27 11:29 | Outpatient (BNV) | payer BC, SELFPAY | PROVIDERS: PCP Internal Medicine; Visit Provider Radiology Diagnostic Radiology | DX: M54.50 Low back pain, unspecified (principal); M25.561 Pain in right knee; M25.562 Pain in left knee | CPT/HCPCS: 72100; 73560 ==

== ENCOUNTER → 2024-11-11 11:45 | Outpatient (BNV) | payer BC, SELFPAY | PROVIDERS: PCP Internal Medicine; Visit Provider Radiology Body Imaging | DX: Z12.31 Encounter for screening mammogram for malignant neoplasm of breast (principal) | CPT/HCPCS: 77063; 77067 ==

== ENCOUNTER 2024-11-11 11:59 | Outpatient (REF) | payer BC, SELFPAY ==
--- OUTSIDE RECORDS SUMMARY | 2024-11-11 12:27 | XMS_ITS | Clinical Summary ---
Author Organization [facility] Address [address] [facility] [address] [place] [address] Phone Care Team Providers Care Manager Lsw Name Role Phone Ginna Mclain MD Primary Care Provider [phone] Allergies No known active allergies Social History [...] topic Medical Devices Not on file Insurance [facility] Care Teams Manager Lsw Relationship Specialty Start Date End Date Ginna Mclain MD [address] [place] [address] PCP - General Internal Medicine 03/21/24 Additional Source Comments The information contained in this document represents components of the legal health record. It is not the complete legal health record.[facility]
--- OUTSIDE RECORDS SUMMARY | 2024-11-11 12:27 | XMS_ITS | Patient Health Record ---
Author Organization [facility] Address [address] [place] [address] Care Team Providers Care Scalp Treatment Specialist Name Role Phone Shannon Malone M.D. Primary Care Provider Unavail able SalgadoCarlos Enrique Unavailable [phone] Reason For Referral No Information Medications Medication [...] W/U Status Risk Notes Problem Esophageal reflux (554532408) Esophageal reflux (530.81) Active confirmed Problem Epigastric pain (89960391) Abdominal pain, epigastric (789.06) Active confirmed Problem Irritable bowel (93285312) Irritable bowel (564.1) Active confirmed Problem Gastroesophageal reflux disease (330330623) GERD (gastroesophag eal reflux disease) (530.81) Active confirmed Plan Of Treatment No Information Insurance Providers Payer Name Payer Address Payer Phone Subscriber Number Group Number Insured Name Patient Relationship to Insured Coverage Start Date Coverage End Date [employer] [address] [place] [phone] will call back with add and #SHIRLEY ZHANG Self - patient is the insured Medical (General) History Medical History History ICD Code EGD 09-07-2010 with a HH and gastritis/H.p ylori esophageal reflux asthma Left ovarian cyst H. pylori Rx'd in 2010 Denies HI,DM,CVA,Lung disease,renal dise ase Negative GB U/S and HIDA with CCK Surgical History Surgery Date(Month/Year) breast reductiion
== END 2024-11-11 12:00 | disposition home or self-care (01) ==
LOC: HO.MAMMO 11:59
PROVIDERS: PCP Internal Medicine; Visit Provider Internal Medicine
DX: Z12.31 Encounter for screening mammogram for malignant neoplasm of breast (principal)
CPT/HCPCS: 77063; 77067

== ENCOUNTER 2024-12-08 13:22 | Outpatient (AMB) | payer BC, SELFPAY ==
[2024-12-08 13:24] VITALS: BP 118/78; PULSE 75; RESP 17; TEMP 37.1; O2SAT 99; BMI 32.8
--- NOTE | 2024-12-08 13:24 | A.OFFPC_ITS ---
Vital Signs 12/08/24 13:24 Height 5 ft Weight 168 lb BMI 32.8 BP 118/78 Blood Pressure Location Lt brachial Position Sitting Respiration 17 Pulse 75 Pulse Source Pulse Oximeter Temp 98.8 F Temp Source Oral Pulse Oximetry (%) 99 Oxygen Delivery Method Room Air Intake Visit Reasons: 6 weeks f/up Allergies oxycodone (From PERCOCET) Allergy (Unknown, Verified 12/08/24 13:33) ITCHING Medication List - Last Reconciled 12/08/24 by Ginna Mclain MD albuterol sulfate 90 mcg/actuation 2 puffs inhalation Q6H PRN docusate sodium 100 mg PO BEDTIME fluticasone propion-salmeterol 230-21 mcg/actuation (Advair HFA) 2 puffs inhalation BID pantoprazole 40 mg PO DAILY Tobacco use date assessed: 12/08/24 Dental Screening Dental Screen Date: 08/05/24 HPI 6 weeks f/up HPI Details Pt c/o chronic and persistent bilateral leg pain burning pressure sensation starting in both groin and anterior thighs radiating down to knees worse at the end of the day. Patient noticed left lower extremity weakness. She exercises on a treadmill at the gym 5 times a week despite pain. Patient denies lower back pain, change in the bladder or bowel function. She was evaluated by vascular surgeon and peripheral venous or arterial disease was ruled out. Patient did not try gabapentin. 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 Carlos Enrique Eng, Debora Cabezas, Alejandro Chilel and colleagues, with an educational abram from [employer]. Review of Systems Const All systems reviewed & are unremarkable except as noted in HPI and below Eyes Reports no additional complaints ENT Reports no additional complaints Card Reports no additional complaints Resp Reports no additional complaints GI Reports no additional complaints Physical exam (Primary Care) Vital Signs: Last Vital Signs Temp 98.8 F 12/08/24 13:24 Pulse 75 12/08/24 13:24 Resp 17 12/08/24 13:24 BP 118/78 12/08/24 13:24 Pulse Ox 99 12/08/24 13:24 Oxygen Delivery Method Room Air 12/08/24 13:24 BMI result Body Mass Index 32.8 Tobacco/Smoking Status: Tobacco use Status Tobacco use date assessed 12/08/24 12/08/24 13:37 Patient Tobacco Use Status Never used Tobacco 12/08/24 13:37 e-Cigarette/Vaping Use Never Used 12/08/24 13:25 Thrive Assessment: Date of Thrive Assessment Date Thrive assessed 09/20/24 12/08/24 13:25 Const General: no acute distress HENMT Head: Yes normal to inspection Neck Neck: Yes supple Resp Effort & Inspection: normal respiratory effort Auscultation: clear to auscultation bilaterally Cardio Rhythm: regular rhythm Heart sounds: S1 normal heart sound present and S2 normal heart sound present GI Inspection: Yes normal to inspection Palpation (GI): Soft to palpation Neuro Other: Left lower extremity proximal strength 4 to 5/5 distal 5/5, right lower extremity strength 5/5 proximal and distal, deep tendon reflexes 2+ bilaterally straight leg rising 90 degrees bilaterally, full range of motion in both hips and knees, no knee joints tenderness or swelling Cranial nerves: Yes CN's II-XII intact bilaterally Gait exam (Neuro): Normal gait present Coding Level of Care Code Est Pt Level 4 (87183) Diagnoses Left leg weakness R29.898 Bilateral lower extremity pain M79.604; M79.605 Assessment & Plan Assessment & Plan (1) Left leg weakness: Code(s): R29.898 - Other symptoms and signs involving the musculoskeletal system Category: Medical Plan: For persistent weakness and pain in left lower extremity obtain EMG and nerve conduction study (2) Bilateral lower extremity pain: Comment: Normal venous and arterial Doppler, normal lumbar spine, hips and knees x-rays, negative arthritis panel including Lyme disease, rheumatoid factor, TAYLOR, normal CRP and CPK 10/2024 Code(s): M79.604 - Pain in right leg; M79.605 - Pain in left leg Category: Medical Plan: Referred to neurology. Patient declined taking gabapentin Orders: Orders NE electromyogram (EMG) Today R29.898 - Other symptoms and signs involving the musculoskeletal system NE nerve conduction velocity Today R29.898 - Other symptoms and signs involving the musculoskeletal system Referrals Neurology Referral M79.604 - Pain in right leg, M79.605 - Pain in left leg, R29.898 - Other symptoms and signs involving the musculoskeletal system Medications: Discontinued gabapentin Discontinued Reason: Doctor's Order 300 mg PO BEDTIME 90 caps 0RF
--- OUTSIDE RECORDS SUMMARY | 2024-12-08 15:38 | XMS_ITS | Clinical Summary ---
Author Organization [facility] Address [address] [place] [address] Phone Care Team Providers Care Harnessmaker Apprentice Name Role Phone Ginna Mclain MD Primary Care Provider [phone] Allergies No known active allergies Social History [...] topic Medical Devices Not on file Insurance [facility] Care Teams Harnessmaker Apprentice Relationship Specialty Start Date End Date Ginna Mclain MD [address] [place] [address] PCP - General Internal Medicine 03/21/24 Additional Source Comments The information contained in this document represents components of the legal health record. It is not the complete legal health record.[facility]
--- OUTSIDE RECORDS SUMMARY | 2024-12-08 15:38 | XMS_ITS | Patient Health Record ---
Author Organization [facility] Address [address] [place] [address] Care Team Providers Care Power Ballast Machine Operator Name Role Phone Shannon Malone M.D. Primary Care Provider Unavail able SalgaodCarlos Enrique Unavailable [phone] Reason For Referral No Information Medications Medication [...] W/U Status Risk Notes Problem Esophageal reflux (400005603) Esophageal reflux (530.81) Active confirmed Problem Epigastric pain (91721238) Abdominal pain, epigastric (789.06) Active confirmed Problem Irritable bowel (08620495) Irritable bowel (564.1) Active confirmed Problem Gastroesophageal reflux disease (930770817) GERD (gastroesophag eal reflux disease) (530.81) Active confirmed Plan Of Treatment No Information Insurance Providers Payer Name Payer Address Payer Phone Subscriber Number Group Number Insured Name Patient Relationship to Insured Coverage Start Date Coverage End Date [employer] [address] [place] [phone] will call back with add and #SHIRLEY ZHANG Self - patient is the insured Medical (General) History Medical History History ICD Code EGD 09-07-2010 with a HH and gastritis/H.p ylori esophageal reflux asthma Left ovarian cyst H. pylori Rx'd in 2010 Denies [place],DM,CVA,Lung disease,renal dise ase Negative GB U/S and HIDA with CCK Surgical History Surgery Date(Month/Year) breast reductiion
== END 2024-12-08 16:57 | disposition home or self-care (01) ==
LOC: HO.HMCC 13:23
PROVIDERS: PCP Internal Medicine; Visit Provider Internal Medicine
DX: R29.898 Other symptoms and signs involving the musculoskeletal system (principal); M79.604 Pain in right leg; M79.605 Pain in left leg

== ENCOUNTER 2024-12-22 18:53 | Emergency (ER) | payer BC, SELFPAY ==
--- NOTE | ~2024-12-22 | CT_ITS ---
CLINICAL HISTORY: right sided abdominal pain CT abdomen and pelvis with contrast Comparison: Ultrasound of the pelvis from 01/15/2023 Findings: No consolidation of the imaged lung bases. Fat deposition noted in the liver including adjacent to the falciform ligament. Multiple low-density lesions of the liver are nonspecific with 1 in the right lobe measuring 9 mm selectively. Differential considerations include cysts and hemangiomas in the absence of malignancy. The adrenal glands are normal. Gallbladder is unremarkable for CT. Mild volume loss of the pancreas noted. The spleen is nonenlarged. No hydronephrosis. Calcifications in the pelvis likely due to phleboliths. Nonenlarged lymphadenopathy. Small hiatal hernia. No small bowel obstruction. Imaged appendix within normal limits (imaged 445 of series 4). Severe stool burden present, including the cecum. The uterus is absent. No adnexal soft tissue mass by CT. Mild wall thickening of the mildly distended urinary bladder is nonspecific. Transitional vertebral anatomy of the lumbosacral junction. Degenerative changes include lower lumbar facet arthropathy. Mild osteoarthritis of the hips by CT. IMPRESSION: 1. Nonspecific liver lesions by CT. Differential considerations include cysts and hemangiomas in the absence of malignancy. Please consider 3 to six-month follow-up with liver mass imaging. 2. Severe stool burden. No small bowel obstruction. 3. Small hiatal hernia. This document has been electronically signed by: Kp Christine MD on 12/22/2024 22:58:48
[2024-12-22 19:06] VITALS: BP 145/72; PULSE 77; RESP 16; TEMP 36.6; O2SAT 100; BMI 32.8
--- NOTE | 2024-12-22 19:08 | ED.GENADULT ---
HPI - General Adult General Chief complaint: Abdominal Pain Stated complaint: ? gallbladder, kidney stones Time Seen by Provider: 12/22/24 19:39 Source: patient, RN notes reviewed and old records reviewed Mode of arrival: ambulatory Limitations: no limitations History of Present Illness ED Provider: Chrissie RETANA narrative: Pt is a 44 yo female with a history of GERD presenting for evaluation of lower back pain that began yesterday. She states the pain is bilateral, favoring the right side, and radiates to the epigastric area. She reports chills and nausea beginning at the same time. She denies vomiting or diarrhea. She admits that it is worse with eating and laying down. Pt states her last bowel movement was two days ago, and that she has a history of constipation. She denies history of abdominal surgeries. She denies shortness of breath or palpitations. Denies any symptoms Related Data Previous Rx's ?Medication ?Instructions ?Recorded pantoprazole 40 mg tablet,delayed 40 mg PO DAILY #30 tabs 05/08/23 release docusate sodium 100 mg capsule 100 mg PO BEDTIME #90 caps 12/26/23 fluticasone propionate 230 2 puff inhalation BID #12 grams 06/24/24 mcg-salmeterol 21 mcg/actuation HFA inhaler (Advair HFA) albuterol sulfate 90 mcg/actuation 2 puff inhalation Q6H PRN 06/25/24 aerosol inhaler shortness of breath or wheezing #6.7 grams peg 3350-electrolytes 236 240 ml PO Q10M #4,000 mL 12/22/24 gram-22.74 gram-6.74 gram-5.86 gram solution (GaviLyte-G) Allergies Allergy/AdvReac Type Severity Reaction Status Date / Time oxycodone (From PERCOCET) Allergy Unknown ITCHING Verified 12/22/24 19:06 Review of Systems Constitutional: Constitutional: Denies excessive sweating and Denies headache(s) ENT: Denies headache(s) Cardiovascular: Cardiovascular: Reports chest pain and Denies dyspnea Respiratory: Respiratory: Denies dyspnea Gastrointestinal: Gastrointestinal: Reports abdominal pain, Denies bloating, Reports constipation, Denies diarrhea, Reports nausea and Denies vomiting Genitourinary: Genitourinary: Denies dysuria, Denies pelvic pain and Reports flank pain Musculoskeletal: Musculoskeletal: Reports back pain Neurologic: Denies headache(s) Endocrine: Endocrine: Denies excessive sweating and Denies polyuria [facility] Past Medical History Medical History (Updated 12/22/24 @ 23:09 by Silvino Dickens) Left leg weakness Bilateral lower extremity pain Chronic pain of both hips Chronic headaches Asthma GERD (gastroesophageal reflux disease) Internal and external bleeding hemorrhoids Surgical History Hx of hysterectomy Hx of colonoscopy History of bunionectomy History of esophagogastroduodenoscopy (EGD) Family History Family History Father Dementia Mother Diabetes Maternal Aunt Stomach cancer Ovarian cancer Social History Social History Household Members Other:: SINGLE, 2 children, 21 and 26, 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 Housing: House Patient Tobacco Use Status: Never used Tobacco Smoked in Last 30 Days: No e-Cigarette/Vaping Use: Never Used Advance Directives: No Advance Directives Information Provided: No service: No Current occupational status: employed 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 Sexual orientation: Straight/Heterosexual Gender identity: Female Cognitive needs: No Hearing needs: No Vision needs: No Physical Exam ED Vital Signs: Vital Signs - 24 hr 12/22/24 19:06 Temperature 97.8 F Pulse Rate 77 Respiratory Rate 16 Blood Pressure 145/72 H Pulse Oximetry 100 Oxygen Delivery Method Room Air BMI result Body Mass Index 32.8 Const General: healthy appearing, comfortable, no acute distress, alert and awake Nutritional Appearance: well nourished Orientation/consciousness: patient oriented x3 HENMT Head: Yes normocephalic and Yes atraumatic Chest Chest palpation & inspection: normal inspection of the chest and no tenderness Resp Effort & Inspection: normal respiratory effort Auscultation: clear to auscultation bilaterally, no rales, no rhonchi, no wheezes and lung sounds not diminished Cardio Rate: regular rate Rhythm: regular rhythm Heart sounds: no gallops, no murmurs and no rubs GI Inspection: No distended Palpation (GI): Soft to palpation, not firm, Tenderness to palpation present (GI), no guarding, not rigid and No Rebound tenderness present Auscultation: normoactive bowel sounds General: Yes CVA tenderness on the right Back/Spine/Pelvis Back: CVA tenderness Skin General skin exam: no rashes or lesions noted and elasticity normal Neuro General: patient oriented x3 Cranial nerves: Yes Bilaterally intact EOM present Cognition (Neuro): normal cognition Extrem Other: Moving all extremities well without any obvious deformities Course Course Course Narrative: RME: 44-year-old female presents to ED for right flank right abdominal pains since last week. Patient is sent from urgent care for possible kidney stones versus gallbladder pain. Labs ordered. Medications Administered Discontinued Medications Generic Name Dose Route Start Last Admin Trade Name Freflorentino PRN Reason Stop Dose Admin Acetaminophen 1,000 mg in 100 mls @ 400 mls/hr 12/22/24 22:07 12/22/24 22:17 Ofirmev IV 12/22/24 22:21 400 mls/hr ONCE ONE Administration Iohexol 85 ml 12/22/24 21:28 12/22/24 21:29 Iohexol 350 Mg/Ml 100 Ml Infus..Btl IV 12/22/24 21:29 85 ml ONCE ONE Administration Medical Decision Making Medical Decision Making MDM Narrative: 44-year-old female with complaints of abdominal pain radiating to her back and chest since last night. She has a history of constipation reports feeling constipated over last couple of days. She is tender in the right upper and right lower abdomen raising concern for biliary disease as well as acute appendicitis. She has no urinary complaints. Urinalysis does not show any evidence of hematuria or pyuria. We will get a CT scan of the abdomen pelvis to evaluate for intra-abdominal pathology. Differential Diagnosis Differential Diagnoses: The differential diagnosis associated with the presentation includes Cholecystitis Appendicitis Constipation Gastric Ulcer Nephrolithiasis Lab Data MDM Lab Attestation statement: I reviewed the patient's lab results. No leukocytosis or significant anemia. Normal platelet count. No significant electrolyte abnormalities warranting dimension. Renal function at baseline. The patient is not . Urinalysis without hematuria or pyuria 12/22/24 19:18 12/22/24 19:18 Labs: Lab Results 12/22/24 Range/Units 19:18 WBC 6.1 (4.8-10.8) X10*3/uL RBC 3.99 L (4.20-5.50) X10*6/uL Hgb 12.1 (12.0-16.0) g/dl Hct 35.7 L (37.0-47.0) % MCV 89.5 (80.0-98.0) fL MCH 30.3 (27.0-33.0) pg MCHC 33.9 (31.0-35.0) g/dl RDW 13.2 (11.0-16.0) % Plt Count 205 (160-400) X10*3/uL MPV 8.8 L (9.4-12.3) fL Immature Gran % (Auto) 0.2 (0.0-0.4) % Neut % (Auto) 45.2 (45-73) % Lymph % (Auto) 42.8 H (20-40) % Frontier % (Auto) 6.5 (2-11) % Eos % (Auto) 4.6 H (0-4) % Baso % (Auto) 0.7 (0-2) % Lymph # (Auto) 2.6 (1.2-4.9) X10*3/uL Frontier # (Auto) 0.4 (0.1-1.2) X10*3/uL Eos # (Auto) 0.3 (0.0-0.4) X10*3/uL Baso # (Auto) 0.0 (0.0-0.2) X10*3/uL Abs Immat Gran (auto) 0.01 (0.00-0.03) X10*3/uL Absolute Neuts (auto) 2.8 (2.0-8.3) x10*3/uL Absolute Nucleated RBC 0.000 (0.0-0.012) X10*3/uL Nucleated RBC % (auto) 0.0 (0.0-0.2) /100WBC Sodium 141 (135-145) mmol/L Potassium 4.0 (3.3-5.1) mmol/L Chloride 108 (96-108) mmol/L Carbon Dioxide 24 (22-29) mmol/L Anion Gap 13 (12-20) BUN 11 (9-16) mg/dL Creatinine 1.00 (0.5-1.4) mg/dL Estim Creat Clear Calc 64.1 Estimated GFR 60 Random Glucose 111 (60-115) mg/dL Calcium 9.5 (8.4-10.2) mg/dL Total Bilirubin 0.3 (0.0-1.0) mg/dL AST 26 (5-31) U/L ALT 24 (0-31) U/L Alkaline Phosphatase 74 (39-117) U/L Total Protein 7.5 (6.5-8.0) g/dL Albumin 4.6 (3.5-5.0) g/dL Lipase 35 (8-78) U/L Beta HCG, Quant < 2 mIU/mL Urine Color Yellow Urine Appearance Clear Urine pH 6.0 (5.0-9.0) Ur Specific [place] <= 1.005 (1.005-1.025) Urine Protein Negative (Neg-Trace) mg/dL Urine Glucose (UA) Negative (Negative) mg/dL Urine Ketones Negative (Negative) mg/dL Urine Blood Negative (Negative) Urine Nitrite Negative (Negative) Ur Leukocyte Esterase Negative (Negative) Independent Interpretation I performed an independent interpretation of an: CT Scan Interpretation: Agree with Radiology interpretation Radiology Impression Discussion of test interpretation with radiology: I have reviewed the radiologist's reading. Radiologist Impression: Findings: No consolidation of the imaged lung bases. Fat deposition noted in the liver including adjacent to the falciform ligament. Multiple low-density lesions of the liver are nonspecific with 1 in the right lobe measuring 9 mm selectively. Differential considerations include cysts and hemangiomas in the absence of malignancy. The adrenal glands are normal. Gallbladder is unremarkable for CT. Mild volume loss of the pancreas noted. The spleen is nonenlarged. No hydronephrosis. Calcifications in the pelvis likely due to phleboliths. Nonenlarged lymphadenopathy. Small hiatal hernia. No small bowel obstruction. Imaged appendix within normal limits (imaged 445 of series 4). Severe stool burden present, including the cecum. The uterus is absent. No adnexal soft tissue mass by CT. Mild wall thickening of the mildly distended urinary bladder is nonspecific. Transitional vertebral anatomy of the lumbosacral junction. Degenerative changes include lower lumbar facet arthropathy. Mild osteoarthritis of the hips by CT. IMPRESSION: 1. Nonspecific liver lesions by CT. Differential considerations include cysts and hemangiomas in the absence of malignancy. Please consider 3 to six-month follow-up with liver mass imaging. 2. Severe stool burden. No small bowel obstruction. 3. Small hiatal hernia. This document has been electronically signed by: Kp Christine MD on 12/22/2024 22:58:48 Discharge Plan Discharge Clinical Impression: Constipation Patient Disposition: Home, Self-Care Instructions: Constipation (ED), High Fiber Diet (ED) Additional Instructions: Your workup in the ER today was reassuring Your CT scan showed severe constipation. I recommend taking MiraLax every night for the next 2 weeks. Increase fluid and fiber intake in your diet. You may use magnesium citrate which is an [id number] laxative to help with your symptoms. I did prescribe GoLYTELY if you did not have any you do not need to drink the entire bottle You should not take the magnesium citrate and GoLYTELY together You had an incidental finding of a 9 mm nodule in the right lobe of your liver. This is likely benign but she will be followed up with repeat imaging in 3-6 months, call your doctor to schedule this Prescriptions: New peg 3350-electrolytes [GaviLyte-G] 236-22.74-6.74 -5.86 gram recon soln 240 ml PO Q10M Qty: 4000 0RF Rx Instructions: until fecal effluent is clear No Action Advair HFA 230-21 mcg/actuation HFA aerosol inhaler 2 puff inhalation BID Qty: 12 5RF albuterol sulfate 90 mcg/actuation HFA aerosol inhaler 2 puff inhalation Q6H PRN (Reason: shortness of breath or wheezing) Qty: 6.7 3RF pantoprazole 40 mg tablet,delayed release (DR/EC) 40 mg PO DAILY Qty: 30 2RF Rx Instructions: take one tablet half an hour before breakfast docusate sodium 100 mg capsule 100 mg PO BEDTIME Qty: 90 3RF Print Language: Ecuadorean
[2024-12-22 19:23] LABS: MANUAL DIFF FLAG NO
[2024-12-22 19:25] LABS: Hematocrit 35.7 % (37.0-47.0); Hemoglobin 12.1 g/dl (12.0-16.0); Imm Gran Abs Auto 0.01 X10*3/uL (0.00-0.03); Imm Gran Pct Auto 0.2 % (0.0-0.4); Lymphocytes Absolute Auto 2.6 X10*3/uL (1.2-4.9); Mean Corpuscular HGB Conc 33.9 g/dl (31.0-35.0); Mean Corpuscular Hemoglobin 30.3 pg (27.0-33.0); Mean Corpuscular Volume 89.5 fL (80.0-98.0); NRBC Abs Auto 0.000 X10*3/uL (0.0-0.012); NRBC Pct Auto 0.0 /100WBC (0.0-0.2); Platelet Count 205 X10*3/uL (160-400); Red Blood Count 3.99 X10*6/uL (4.20-5.50); White Blood Count 6.1 X10*3/uL (4.8-10.8)
[2024-12-22 19:29] LABS: Appearance Urine Clear; Glucose Urine UA Negative (Negative); PH 6.0 (5.0-9.0); Specific Gravity - Urine <= 1.005 (1.005-1.025)
--- OUTSIDE RECORDS SUMMARY | 2024-12-22 19:40 | XMS_ITS | Patient Health Record ---
Author Organization [facility] Address [address] [place] [address] Care Team Providers Care Control Clerk Food And Beverage Name Role Phone Shannon Malone M.D. Primary Care Provider Unavail able SalgadoCralos Enrique Unavailable [phone] Reason For Referral No Information Medications Medication [...] W/U Status Risk Notes Problem Esophageal reflux (431049767) Esophageal reflux (530.81) Active confirmed Problem Epigastric pain (09116175) Abdominal pain, epigastric (789.06) Active confirmed Problem Irritable bowel (10942493) Irritable bowel (564.1) Active confirmed Problem Gastroesophageal reflux disease (029242751) GERD (gastroesophag eal reflux disease) (530.81) Active confirmed Plan Of Treatment No Information Insurance Providers Payer Name Payer Address Payer Phone Subscriber Number Group Number Insured Name Patient Relationship to Insured Coverage Start Date Coverage End Date [employer] [address] [place] [address] will call back with add and #SHIRLEY ZHANG Self - patient is the insured Medical (General) History Medical History History ICD Code EGD 09-07-2010 with a HH and gastritis/H.p ylori esophageal reflux asthma Left ovarian cyst H. pylori Rx'd in 2010 Denies [place],DM,CVA,Lung disease,renal dise ase Negative GB U/S and HIDA with CCK Surgical History Surgery Date(Month/Year) breast reductiion
--- OUTSIDE RECORDS SUMMARY | 2024-12-22 19:40 | XMS_ITS | Clinical Summary ---
Author Organization [facility] Address [address] [place] [address] Phone Care Team Providers Care Supervisor Contact And Service Clerks Name Role Phone Ginna Mclain MD Primary Care Provider [phone] Allergies No known active allergies Social History [...] FOBT 2023 SIGMOIDOSCOPY 2023 VIRTUAL COLONOSCOPY 2023 INFLUENZA VACCINE (#1) 2024 COVID-19 VACCINE ( - 2023-2 5 season) 2024 SCREENING FOR DIABETES 03/21/2027 03/21/2024 HEPATITIS A [...] topic Medical Devices Not on file [facility] Care Teams Supervisor Contact And Service Clerks Relationship Specialty Start Date End Date Ginna Mclain MD [address] [place] [id number] PCP - General Internal Medicine 03/21/24 Additional Source Comments The information contained in this document represents components of the legal health record. It is not the complete legal health record.[facility]
[2024-12-22 19:54] LABS: Alanine Aminotransferase 24 U/L (0-31); Albumin Level 4.6 g/dL (3.5-5.0); Alkaline Phosphatase 74 U/L (39-117); Anion Gap 13 (12-20); Aspartate Amino Transferase 26 U/L (5-31); Blood Urea Nitrogen 11 mg/dL (9-16); Calcium 9.5 mg/dL (8.4-10.2); Carbon Dioxide 24 mmol/L (22-29); Chloride 108 mmol/L (96-108); Creatinine Clr Calc Pharmacy 64.1; Estimated Glomerular Filt Rate 60; Lipase 35 U/L (8-78); Potassium 4.0 mmol/L (3.3-5.1); Sodium 141 mmol/L (135-145); Total Protein 7.5 g/dL (6.5-8.0)
--- NOTE | 2024-12-22 20:42 | ECG_ITS ---
Test Reason : PAIN Blood Pressure : */* mmHG Vent. Rate : 68 BPM Atrial Rate : 68 BPM P-R Int : 160 ms QRS Dur : 92 ms QT Int : 422 ms P-R-T Axes : 26 -10 -8 degrees QTcB Int : 448 ms Normal sinus rhythm Nonspecific T wave abnormality Abnormal ECG No previous ECGs available Referred By: Silvino Dickens Electronically Signed By: GIORGIO WARD
[2024-12-22] MEDS: iohexoL 350 MG/ML 100 ML INFUS..BTL 85 ML IV (21:29)
[2024-12-22 23:35] VITALS: BP 145/72; PULSE 77; RESP 16; TEMP 36.6; O2SAT 100
== END 2024-12-22 23:38 | disposition home or self-care (01) ==
PROVIDERS: Physician Assistant; Emergency Provider Student in an Organized Health Care Education/Training Program; PCP Internal Medicine
DX: K59.00 Constipation, unspecified (principal); R10.2 Pelvic and perineal pain; R10.13 Epigastric pain; M54.50 Low back pain, unspecified; R94.31 Abnormal electrocardiogram [ECG] [EKG]
CPT/HCPCS: 36415; 74177; 80053; 81003; 83690; 84702; 85025; 93005; 96374; 99285; J0131; Q9967

== ENCOUNTER → 2024-12-22 20:02 | Outpatient (BNV) | payer BC, SELFPAY | PROVIDERS: Emergency Provider Student in an Organized Health Care Education/Training Program; PCP Internal Medicine; Visit Provider Radiology Neuroradiology | DX: K44.9 Diaphragmatic hernia without obstruction or gangrene (principal) | CPT/HCPCS: 74177 ==

== ENCOUNTER → 2024-12-22 20:42 | Outpatient (BNV) | payer BC, SELFPAY | PROVIDERS: Emergency Provider Student in an Organized Health Care Education/Training Program; PCP Internal Medicine; Visit Provider Internal Medicine | DX: R94.31 Abnormal electrocardiogram [ECG] [EKG] (principal); R07.9 Chest pain, unspecified | CPT/HCPCS: 93010 ==

== ENCOUNTER 2025-02-10 09:59 | Outpatient (REF) | payer BC, SELFPAY ==
--- NOTE | ~2025-02-10 | US_ITS ---
CLINICAL HISTORY: K76.89 - Other specified diseases of liver US abdomen limited Comparison: CT/REG/SR - CT ABDOMEN PELVIS W IV CON - 12/22/24 21:21 EDT Findings: The visualized pancreas is normal. The aorta and inferior vena cava are normal caliber. The liver measures 11.8 cm. There is an anechoic cyst in the right lobe measuring 0.7 x 0.7 x 0.6 cm. Liver is diffusely echogenic. There is no intrahepatic bile duct dilatation. The common duct is 3 mm in diameter. The gallbladder is normal. There is no sonographic Cummings sign. The main portal vein is antegrade. The right kidney is 10.4 cm in length. No ascites. IMPRESSION: 1. Simple cyst in the right lobe of the liver. 2. Mild hepatic steatosis. This document has been electronically signed by: Christa Vines MD on 02/10/2025 20:09:43
--- OUTSIDE RECORDS SUMMARY | 2025-02-10 11:28 | XMS_ITS | Patient Health Record ---
Author Organization [facility] Address [address] [place] [address] Care Team Providers Care Plastics Scientist Name Role Phone Shannon Malone M.D. Primary Care Provider Unavail able Naomi Carlos Enrique Unavailable [phone] Reason For Referral No Information Medications Medication SIG (Take, Route, Frequency, Duration) Notes Start Date End Date Status Omeprazole 20 MG 1 capsule po QD; Duration: 30 Active Hyoscyamine Sulfate 0.125 MG 1-2 tablets Orally Q 4-6 hours as needed for abdominal discomfort; Duration: 30 days 03/25/2012 Active Ventolin HFA Active PriLOSEC Active Problems Problem Type SNOMED Code ICD Code Onset Dates Problem Status W/U Status Risk Notes Problem Esophageal reflux (760475236) Esophageal reflux (530.81) Active confirmed Problem Epigastric pain (93206538) Abdominal pain, epigastric (789.06) Active confirmed Problem Irritable bowel (70582808) Irritable bowel (564.1) Active confirmed Problem Gastroesophageal reflux disease (476622211) GERD (gastroesophag eal reflux disease) (530.81) Active confirmed Plan Of Treatment No Information Insurance Providers Payer Name Payer Address Payer Phone Subscriber Number Group Number Insured Name Patient Relationship to Insured Coverage Start Date Coverage End Date [employer] [address] [place] [address] will call back with add and #SHIRLEY ZHANG Self - patient is the insured Medical (General) History Medical History History ICD Code EGD 09-07-2010 with a HH and gastritis/H.p ylori esophageal reflux asthma Left ovarian cyst H. pylori Rx'd in 2010 Denies [place],DM,CVA,Lung disease,renal dise ase Negative GB U/S and HIDA with CCK Surgical History Surgery Date(Month/Year) breast reductiion
--- OUTSIDE RECORDS SUMMARY | 2025-02-10 11:28 | XMS_ITS | Clinical Summary ---
Author Organization [facility] Address [address] [place] [address] Phone Care Team Providers Care Puppy Walker Name Role Phone Ginna Mclain MD Primary Care Provider [phone] Allergies No known active allergies Social History [...] VACCINE (#1) 2024 COVID-19 VACCINE ( - 2024-2 6 season) 2024 SCREENING FOR DIABETES 03/21/2027 03/21/2024 [...] topic Medical Devices Not on file Insurance [facility] Care Teams Puppy Walker Relationship Specialty Start Date End Date Ginna Mclain MD [address] [place] [address] PCP - General Internal Medicine 03/21/24 Additional Source Comments The information contained in this document represents components of the legal health record. It is not the complete legal health record.[facility]
== END 2025-02-10 10:00 | disposition home or self-care (01) ==
LOC: HO.HMGCX 09:59
PROVIDERS: PCP Internal Medicine; Visit Provider Internal Medicine
DX: K76.89 Other specified diseases of liver (principal)
CPT/HCPCS: 76705

== ENCOUNTER → 2025-02-10 10:07 | Outpatient (BNV) | payer BC, SELFPAY | PROVIDERS: PCP Internal Medicine; Visit Provider Student in an Organized Health Care Education/Training Program | DX: K76.89 Other specified diseases of liver (principal); K76.0 Fatty (change of) liver, not elsewhere classified | CPT/HCPCS: 76705 ==

== ENCOUNTER 2025-02-22 08:05 | Outpatient (REF) | payer BC, SELFPAY ==
--- NOTE | 2025-02-22 08:08 | EMG_ITS ---
Chief complaint: Leg weakness and pain Reason for referral: R29.898 other symptoms and signs of involving the musculoskeletal system Referred by: Manju Mclain MD Procedure done:NCS and EMG of bilateral lower extremities Bilateral peroneal and tibial motor studies were performed with F responses. Tibial H reflexes were obtained. Bilateral superficial peroneal and sural sensory studies were performed and median and lateral mixed sensory studies were performed. Needle examination was performed. Findings: Left peroneal motor amplitude was moderately diminished. Otherwise motor studies did not reveal any significant abnormality. In sensory studies, bilateral lateral mixed plantars sensory amplitudes were diminished. Bilateral superficial peroneal amplitudes were also significantly diminished with borderline conduction velocity. 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
== END 2025-02-22 08:06 | disposition home or self-care (01) ==
LOC: HO.NEURO 08:05
PROVIDERS: PCP Internal Medicine; Visit Provider Internal Medicine
DX: R29.898 Other symptoms and signs involving the musculoskeletal system (principal); M79.604 Pain in right leg; M79.605 Pain in left leg
CPT/HCPCS: 95886; 95913

== ENCOUNTER → 2025-02-22 08:08 | Outpatient (BNV) | payer BC, SELFPAY | PROVIDERS: PCP Internal Medicine; Visit Provider Psychiatry & Neurology Neurology | DX: G62.89 Other specified polyneuropathies (principal) | CPT/HCPCS: 95886; 95913 ==